=== PATIENT | male | born 1950 | race Caucasian/White ===

== ENCOUNTER 2021-07-25 20:03 | Emergency (ER) | payer MEDICARE, SELFPAY ==
[2021-07-25 20:04] VITALS: BP 157/85; PULSE 92; RESP 16; TEMP 37.2; O2SAT 95; BMI 29.3
--- NOTE | 2021-07-25 20:46 | EKG12_ITS ---
Test Reason : FEVER Blood Pressure : / mmHG Vent. Rate : 083 BPM Atrial Rate : 083 BPM P-R Int : 146 ms QRS Dur : 094 ms QT Int : 376 ms P-R-T Axes : 035 026 044 degrees QTc Int : 441 ms Normal sinus rhythm Normal ECG Confirmed by CHRISTOPHER RAMIREZ, VLADISLAV ([id number]), non linear editor ROSEANNA FISHER ([id number]) on 07/27/2021 11:43:43 AM Referred By: MARK Confirmed By:VLADISLAV WHITE MD
[2021-07-25 21:01] VITALS: BP 157/85; PULSE 92; RESP 16; TEMP 37.2; O2SAT 95
--- NOTE | 2021-07-25 21:10 | RAD_ITS ---
STUDY: X-RAY CHEST REASON FOR EXAM: Male, 71 years old. cough TECHNIQUE: AP COMPARISON: None. FINDINGS: EKG leads project over the chest. Ill-defined groundglass and reticular opacities of the bilateral lung bases. There is no demonstrated pleural abnormality. Normal size heart. Normal mediastinum and komal. Normal visualized pulmonary arteries. There is atherosclerotic tortuosity of the aortic arch and descending thoracic aorta. Normal visualized thoracic spine. Normal visualized ribs, clavicles, and shoulders. There is no demonstrated abnormality of the visualized soft tissue structures of the upper abdomen. RAD/Chest 1 View (Portable) IMPRESSION: Bibasilar ill-defined opacities suggesting pneumonia, including viral causes. Electronically Signed: Arcadio Morales MD ([place]) at 21:21 EST , Service support ,
[2021-07-25 21:18] LABS: Absolute Lymphocyte Count 0.37 X10^3/uL (0.83-4.51); Absolute Neutrophil Count 7.4 X10^3/uL (2.0-7.7); Basophil# 0.02 X10^3/uL; Basophil% 0.2 % (0-1); Eosinophil# 0.02 X10^3/uL; Eosinophils% 0.2 % (0-5); Hematocrit 37.5 % (40-54); Hemoglobin 12.5 g/dL (13.0-16.5); Lymphocyte # 0.37 X10^3/ul (0.83-4.51); Lymphocyte % 4.1 % (19-41); Mean Corp Hgb Conc 33.3 g/dL (32-36); Mean Corpuscular Hgb 29.9 pg (27.0-32.0); Mean Corpuscular Volume 89.7 fL (80-94); Mean Platelet Vol. 8.7 fl (6.2-12.0); Monocyte# 1.14 X10^3/uL; Monocyte% 12.7 % (0-10); NRBC Flagged by Analyzer 0 % (0-5); Neutrophil # 7.38 X10^3/uL (2.7-7.7); Neutrophil % 82.2 % (47-70); POSITIVE DIFFERENTIAL YES; Platelet Count 250 K/mm3 (150-450); RBC Distribution Width CV 12.9 % (11.6-14.6); RBC Distribution Width SD 41.9 fl (35.1-43.9); Red Blood Count 4.18 M/mm3 (4.6-6.2)
[2021-07-25 21:23] LABS: Differential Indicated SCAN CRITERIA MET
--- NOTE | 2021-07-25 21:25 | EX.ED.DYSGE1 ---
HPI History of Present Illness Chief Complaint: Fever Narrative Narrative: 71-year-old male presenting with fever. He states is been as high as 103. He took Tylenol and his fever had resolved. He complains of cough and sore throat. He states the only medication he takes every day is carbamazepine for seizure disorder. He had all 3 vaccines and had his last vaccine done in June. He denies chest pain. He does have mild shortness of breath. No dysuria, hematuria. No diarrhea or constipation. He has been generally weak today. He has not fallen. PFSH PFS Home Medications carbamazepine 200 mg PO TIDCM 06/14/15 [History Last Taken Unknown] carbamazepine 200 mg PO TID #30 tab 03/21/17 [Rx Last Taken Unknown] Allergy/AdvReac Type Severity Reaction Status Date / Time No Known Allergies Allergy Verified 07/25/21 20:05 Social History Smoking Status: Never smoker ROS ROS ED Constitutional Constitutional ED: Reports chills and fever(s) Eyes Eyes: Denies blurry vision or change in vision ENT ENT ED: Reports sore throat; Denies rhinorrhea Cardiovascular Cardiovascular: Denies chest pain or palpitations Respiratory/Chest Respiratory/Chest: Reports cough, dyspnea and dyspnea on exertion Gastrointestinal Gastrointestinal: Denies abdominal pain, nausea or vomiting Genitourinary Genitourinary ED: Denies dysuria or hematuria Musculoskeletal Musculoskeletal: Denies arthralgias or myalgias Integumentary Denies abscess or rash EXAM Physical Exam Const Vital Signs: 07/25/21 20:04 07/25/21 21:01 07/25/21 22:21 Temperature 99 F 99 F Temperature Source Oral Oral Pulse Rate 92 92 Respiratory Rate 16 16 Respiratory Effort Normal Non-Labored Respiratory Pattern Normal Blood Pressure 157/85 H 157/85 H Blood Pressure Mean 109 109 Pulse Ox 95 95 Oxygen Delivery Method Room Air Room Air 07/25/21 22:24 Temperature Temperature Source Pulse Rate 96 Respiratory Rate 16 Respiratory Effort Respiratory Pattern Blood Pressure 165/68 H Blood Pressure Mean 100 Pulse Ox 96 Oxygen Delivery Method Room Air Positive well nourished General Appearance ED: NAD; Negative for pallor HEENT Reports moist mucous membranes Negative for trauma Eyes PERRL and EOMs intact bilaterally Neck no lymphadenopathy and supple Cardio regular rate and regular rhythm GI normal to inspection, nondistended, normoactive bowel sounds Neuro oriented x3, CN's II-XII intact bilaterally and no sensory deficits noted Sensorium / Orientation: alert Psych mental status grossly normal Skin no rashes or lesions noted General Skin Exam: Negative for jaundice or pallor MDM MDM MDM Narrative Medical decision making narrative: Patient presenting with a cough, sore throat, and generalized weakness. He states he has had 3 Covid vaccines so far. He has no known sick contacts. He has also had a fever of 103. Patient has not had a fever here in the ER because he took Tylenol prior to coming. His vital signs are stable he is afebrile. I did obtain blood work and imaging as well as an EKG. His EKG shows a sinus rhythm with a ventricular rate of 83 bpm without sign of ischemic change. Chest x-ray on my interpretation shows bibasilar infiltrates. The radiologist does agree. CBC shows no leukocytosis and the patient is lymphopenic. D-dimer is 0.73 and therefore patient does not need a CTA with an age-adjusted D-dimer. Creatinine is normal. Procalcitonin negative. Urinalysis negative. Patient's rapid Covid was negative. I will obtain a PCR. If the patient is positive he will be referred for monoclonal antibodies. Since he is not requiring oxygen I do not believe he needs admission. Patient was signed out to incoming ED physician for follow-up on Covid and referral for monoclonal antibodies as needed. Impression: 1. Viral syndrome Lab Data Labs: Laboratory Results - last 24 hr 07/25/21 07/25/21 07/25/21 20:20 20:20 20:20 WBC 9.0 RBC 4.18 L Hgb 12.5 L Hct 37.5 L MCV 89.7 MCH 29.9 MCHC 33.3 RDW Std Deviation 41.9 RDW Coeff of Michaela 12.9 Plt Count 250 MPV 8.7 Immature Gran % (Auto) 0.600 Neut % (Auto) 82.2 H Lymph % (Auto) 4.1 L [place] % (Auto) 12.7 H Eos % (Auto) 0.2 Baso % (Auto) 0.2 Absolute Neuts (auto) 7.4 Absolute Lymphs (auto) 0.37 L Nucleated RBC % 0 Differential Comment Platelet Estimate ADEQUATE RBC Morphology NORM C+C D-Dimer Quant (PE/DVT) 0.73 H* Sodium 134 L Potassium 4.5 Chloride 99 Carbon Dioxide 27.0 Anion Gap 8 BUN 18 Creatinine 1.06 Estim Creat Clear Calc 60.05 Est GFR (MDRD) Af Amer 88 Est GFR (MDRD) Non-Af 73 BUN/Creatinine Ratio 17.0 Glucose 132 H Calcium 9.1 Total Bilirubin 0.20 AST 29 ALT 35 Alkaline Phosphatase 98 Troponin I High Sens 7 Total Protein 8.5 H Albumin 3.4 Globulin 5.1 H Albumin/Globulin Ratio 0.7 L Procalcitonin Urine Color Urine Clarity Urine pH Ur Specific [place] Urine Protein Urine Glucose (UA) Urine Ketones Urine Occult Blood Urine Nitrite Urine Bilirubin Urine Urobilinogen Ur Leukocyte Esterase Urine RBC Urine WBC Ur Squamous Epith Cells Urine Bacteria Urine Mucus 07/25/21 07/25/21 20:58 21:40 WBC RBC Hgb Hct MCV MCH MCHC RDW Std Deviation RDW Coeff of Michaela Plt Count MPV Immature Gran % (Auto) Neut % (Auto) Lymph % (Auto) [place] % (Auto) Eos % (Auto) Baso % (Auto) Absolute Neuts (auto) Absolute Lymphs (auto) Nucleated RBC % Differential Comment Platelet Estimate RBC Morphology D-Dimer Quant (PE/DVT) Sodium Potassium Chloride Carbon Dioxide Anion Gap BUN Creatinine Estim Creat Clear Calc Est GFR (MDRD) Af Amer Est GFR (MDRD) Non-Af BUN/Creatinine Ratio Glucose Calcium Total Bilirubin AST ALT Alkaline Phosphatase Troponin I High Sens Total Protein Albumin Globulin Albumin/Globulin Ratio Procalcitonin 0.04 Urine Color Yellow Urine Clarity Clear Urine pH 6.0 Ur Specific [place] 1.030 Urine Protein 15 H Urine Glucose (UA) Normal Urine Ketones Negative Urine Occult Blood 25 H Urine Nitrite Negative Urine Bilirubin Negative Urine Urobilinogen Normal Ur Leukocyte Esterase Negative Urine RBC 0-5 SEEN Urine WBC 0 SEEN Ur Squamous Epith Cells 0 SEEN Urine Bacteria 0 SEEN Urine Mucus 0 SEEN Radiography Diagnostic Testing: Clinical Impression(s) from Imaging Studies Chest X-Ray 07/25/21 21:10 IMPRESSION: Bibasilar ill-defined opacities suggesting pneumonia, including viral causes. Electronically Signed: Arcadio Morales MD ([place]) at 21:21 EST , Service support , Discharge Plan Triage Chief Complaint: Fever ED Provider: Daryl Pedraza Dx/Rx/DC Orders Prescriptions: No Action carbamazepine 200 MG tablet 200 mg PO TIDCM RF: 0 carbamazepine 200 MG tablet 200 mg PO TID Qty: 30 RF: 0 Primary Care Provider: Bebeto Holcomb
[2021-07-25 21:29] LABS: ALB/GLOB Ratio 0.7 RATIO (0.9-2.4); AST(SGOT) 29 U/L (15-37); Alanine Aminotransfer ALT/SGPT 35 U/L (16-61); Albumin, Serum 3.4 g/dL (3.2-5.0); Alkaline Phosphatase 98 U/L (45-117); Anion Gap 8 (5-15); BUN 18 mg/dL (7-18); Calcium,Total 9.1 mg/dL (8.5-10.1); Chloride 99 mmol/L (98-107); Creatinine, Serum 1.06 mg/dL (0.70-1.30); D-Dimer Quantitative (DVT/PE) 0.73 FEU/ug/m (0.27-0.49); EST Glomerular Filtration Rate 73 mL/min (>60); Est Glom Filt Rate - Afr Amer 88 mL/min (>60); Estimated Creatinine Clearance 60.05 ml/min; Globulin 5.1 g/dL (2.2-4.2); Glucose 132 mg/dL (74-106); Potassium 4.5 mmol/L (3.5-5.1); Protein, Total 8.5 g/dL (6.4-8.2); Sodium Level 134 mmol/L (136-145); Troponin-I HS 7 pg/mL (3.0-78.0)
[2021-07-25 21:46] LABS: Bacteria 0 SEEN /hpf (None Seen); Mucous, Urine 0 SEEN /hpf (<or=2+); Squamous Epithelial Cells - UA 0 SEEN /hpf (0-5); White Blood Cells 0 SEEN /hpf (0-5)
[2021-07-25 21:47] LABS: Procalcitonin 0.04 ng/mL (0.00-0.09)
[2021-07-25 21:57] LABS: Color, Urine Yellow (Yellow); Glucose, Dipstick Normal (Normal); Ketone-Dipstick Negative (Negative); Leukocyte Esterase-Dipstick Negative /ul (Negative); Nitrite-Dipstick Negative (Negative); Occult Blood-Urine 25 /ul (Negative); Protein-Dipstick 15 mg/dl (Negative); Urine Bilirubin Dipstick Negative (Negative); Urine Clarity Clear (Clear); Urine Urobilinogen Normal (Normal)
[2021-07-25 22:03] LABS: Platelet Estimate ADEQUATE (ADEQ); Red Cell Morphology NORM C+C NORMAL (NORM C&C)
[2021-07-25 22:07] LABS: Red Blood Cells-Urine 0-5 SEEN /hpf (0-5)
[2021-07-25 22:24] VITALS: BP 165/68; PULSE 96; RESP 16; O2SAT 96
[2021-07-25 23:50] VITALS: O2SAT 96
== END 2021-07-26 00:05 | disposition home or self-care (01) ==
PROVIDERS: Emergency Provider Student in an Organized Health Care Education/Training Program; PCP Family Medicine
DX: R50.9 Fever, unspecified (principal); B34.9 Viral infection, unspecified; R05.9 Cough, unspecified; J02.9 Acute pharyngitis, unspecified; R53.1 Weakness; R06.02 Shortness of breath; G40.909 Epilepsy, unspecified, not intractable, without status epilepticus
CPT/HCPCS: 71045; 80053; 81001; 84145; 84484; 85025; 85379; 87426; 87635; 93005; 99284; U0005; A4216; U0003

== ENCOUNTER → 2021-07-30 18:25 | Outpatient (CLI) | payer MEDICARE, SELFPAY | PROVIDERS: PCP Family Medicine; Referring Provider Family Medicine; Visit Provider Family Medicine | DX: Z20.822 Contact with and (suspected) exposure to COVID-19 (principal) | CPT/HCPCS: 87635; U0005; U0003 ==

== ENCOUNTER → 2021-08-20 10:36 | Outpatient (CLI) | payer MEDICARE, SELFPAY | PROVIDERS: PCP Family Medicine; Visit Provider Family Medicine | DX: L02.91 Cutaneous abscess, unspecified (principal) | CPT/HCPCS: 87070; 87205 ==

== ENCOUNTER → 2022-11-08 | Outpatient (CLI) | payer MEDICARE, SELFPAY ==
[2022-11-08 17:54] LABS: Absolute Lymphocyte Count 1.44 X10^3/uL (0.83-4.51); Absolute Neutrophil Count 4.5 X10^3/uL (2.0-7.7); Basophil# 0.02 X10^3/uL; Basophil% 0.3 % (0-1); Eosinophil# 0.05 X10^3/uL; Eosinophils% 0.7 % (0-5); Hematocrit 37.6 % (40-54); Hemoglobin 12.1 g/dL (13.0-16.5); Lymphocyte # 1.44 X10^3/ul (0.83-4.51); Mean Corp Hgb Conc 32.2 g/dL (32-36); Mean Corpuscular Hgb 30.9 pg (27.0-32.0); Mean Corpuscular Volume 95.9 fL (80-94); Mean Platelet Vol. 8.4 fl (6.2-12.0); Monocyte# 0.79 X10^3/uL; Monocyte% 11.5 % (0-10); NRBC Flagged by Analyzer 0 % (0-5); Neutrophil # 4.54 X10^3/uL (2.7-7.7); Neutrophil % 66.4 % (47-70); Platelet Count 289 K/mm3 (150-450); RBC Distribution Width CV 12.6 % (11.6-14.6); RBC Distribution Width SD 43.7 fl (35.1-43.9); Red Blood Count 3.92 M/mm3 (4.6-6.2); White Blood Count 6.9 K/mm3 (4.4-11.0)
== END | disposition home or self-care (01) ==
LOC: MTLAB 16:32
PROVIDERS: PCP Family Medicine; Referring Provider Family Medicine; Visit Provider Family Medicine
DX: D64.9 Anemia, unspecified (principal)
CPT/HCPCS: 36415; 85025

== ENCOUNTER 2023-02-27 21:13 | Emergency (ER) | payer MEDICARE, SELFPAY ==
[2023-02-27 21:14] VITALS: BP 185/83; PULSE 72; RESP 16; TEMP 36.4; O2SAT 95; BMI 28.5
--- NOTE | 2023-02-27 21:45 | RAD_ITS ---
STUDY: X-RAY - LEFT SHOULDER REASON FOR EXAM: Male, 73 years old. . Continued left shoulder pain. TECHNIQUE: 2 view(s) of the shoulder. COMPARISON: None. FINDINGS: There is mild degenerative arthrosis of the glenohumeral articulation. There is degenerative arthrosis of the acromioclavicular joint without inferior osseous spur formation. Normal acromion. There is no acute fracture, dislocation or destructive osseous pathology. Normal humeral head and visualized proximal humerus. There are calcifications adjacent to the greater tubercle suggesting calcified bursitis. The soft tissue structures are unremarkable. Normal visualized pulmonary apex. RAD/Shoulder min 2 Views IMPRESSION: Degenerative changes left shoulder with question of calcified bursitis. There is no fracture or dislocation. Electronically Signed: Jorge Gallo DO at 21:58 EDT ,
--- NOTE | 2023-02-27 23:02 | EX.ED.UPPERE ---
HPI History of Present Illness HPI Narrative: Patient presents with left shoulder pain that has been getting worse over the past week. Patient states it is intermittent. Patient states it is worse with movement. Patient states it is better with Tylenol. Patient fell 1 month ago and landed on his left shoulder. Patient never had that evaluated. Patient denies any head injury or loss of consciousness with the fall. Patient denies any paresthesias or weakness. Patient denies any other injuries. Chief Complaint: Upper Extremity Injury Informant: patient Occured/Mechanism Mechanism/Context: Yes fall Onset/Context/Timing Onset: Weeks (1) Context: Gradual Onset Quality of Pain: Dull and Aching Location: Left shoulder Worsened by: Movement Relieved by: Tylenol Associated Symptoms Associated Symptoms: Negative for Parasthesia, Weakness or Loss of Funtion PFSH PFSH Medical History no medical history no medical history Home Medications carbamazepine 200 mg tablet 200 mg PO TIDCM 06/14/15 [History Last Taken Unknown] carbamazepine 200 mg tablet 200 mg PO TID #30 tabs 03/21/17 [Rx Last Taken Unknown] meloxicam 15 mg tablet 15 mg PO DAILY PRN pain #10 tabs 02/27/23 [Rx Last Taken Unknown] Allergy/AdvReac Type Severity Reaction Status Date / Time No Known Allergies Allergy Verified 02/27/23 21:16 Surgical History no surgical history no surgical history Social History Smoking Status: Never smoker ROS ROS ED Constitutional Constitutional ED: Denies chills or fever(s) Eyes Eyes: Denies blurry vision or change in vision ENT ENT ED: Denies rhinorrhea or sore throat Cardiovascular Cardiovascular: Denies chest pain or palpitations Respiratory/Chest Respiratory/Chest: Denies cough or dyspnea Gastrointestinal Gastrointestinal: Denies nausea or vomiting Genitourinary Genitourinary ED: Denies dysuria or hematuria Musculoskeletal Musculoskeletal: Denies back pain or neck pain Integumentary Denies abscess or rash Neurologic Neurologic: Denies headache(s) or weakness Allergic/Immunologic Allergic/Immunologic ED: Denies mouth swelling or urticaria EXAM Physical Exam Const Vital Signs: 02/27/23 21:14 Temperature 97.6 F L Temperature Source Temporal Pulse Rate 72 Respiratory Rate 16 Blood Pressure 185/83 H Blood Pressure Mean 117 Pulse Ox 95 Oxygen Delivery Method Room Air Positive well nourished and well developed General Appearance ED: well developed and NAD HEENT Reports moist mucous membranes Neck full ROM and supple Extremity Extremity Narrative: There is diffuse tenderness over the left shoulder. There is no obvious deformity noted. Range of motion was limited in all motions of the left shoulder secondary to pain. Strength is 5/5 bilateral in the upper extremities. There are no sensory deficits noted. Radial pulses are equal bilaterally. Neuro oriented x3, CN's II-XII intact bilaterally, moves all extremities, no focal motor deficits and no sensory deficits noted Sensorium / Orientation: alert Motor Exam: strength 5/5 throughout Psych mental status grossly normal MDM MDM MDM Narrative Medical decision making narrative: Differential diagnosis includes occult fracture, arthritis, and soft tissue injury. X-rays of the left shoulder will be obtained to assess for fracture and degenerative arthritis. Radiography Diagnostic Testing: Clinical Impression(s) from Imaging Studies Shoulder X-Ray 02/27/23 21:45 IMPRESSION: Degenerative changes left shoulder with question of calcified bursitis. There is no fracture or dislocation. Electronically Signed: Jorge Gallo DO at 21:58 EDT Reading Location ID and State: [address] [place] [address] Tel [phone], Service support , X-rays of the left shoulder were obtained. There are 2 views. On my independent interpretation, there is no acute fracture or dislocation. There is questionable calcific bursitis noted. Radiologist also interpreted the x-rays and agrees. Treatment and Re-Evaluation Narrative: Patient was advised of his findings. Patient was instructed to use ice to the area. Patient was given a prescription for meloxicam to take as needed for pain. Patient was instructed to do range of motion exercises. Patient was instructed to follow-up with his primary care physician in 5 to 7 days. Patient understood and was agreeable with the plan. All questions were answered. Discharge Plan Triage Chief Complaint: Upper Extremity Injury ED Provider: Bairon White Dx/Rx/DC Orders Clinical Impression: Bursitis of left shoulder Instructions: ED Bursitis Prescriptions: New meloxicam 15 mg tablet 15 mg PO DAILY PRN (Reason: pain) Qty: 10 0RF No Action carbamazepine 200 MG tablet 200 mg PO TIDCM carbamazepine 200 MG tablet 200 mg PO TID Qty: 30 0RF Primary Care Provider: Bebeto Holcomb Referrals: Bebeto Holcomb MD [Primary Care Provider] - 5-7 Days Disposition Disposition: Home, Self Care
== END 2023-02-27 23:41 | disposition home or self-care (01) ==
PROVIDERS: Emergency Provider Emergency Medicine; PCP Family Medicine; Visit Provider Emergency Medicine
DX: M75.52 Bursitis of left shoulder (principal); W19.XXXA Unspecified fall, initial encounter
CPT/HCPCS: 73030; 99282

== ENCOUNTER 2023-03-20 14:51 | Outpatient (RCR) | payer MEDICARE, SELFPAY ==
--- NOTE | 2023-03-20 15:53 | HP.PTEVAL ---
Patient's Visit Information Visit Information Visit Information: GIOVANNA MONTOYA is a 73 year old M referred to Physical Therapy by Dr. Kevin Herrmann DO with a diagnosis of Left Shoulder. Date of Evaluation: 03/20/23 Physical Therapist: Chantal Breen DPT Visit Plan Plan: Gave indep HEP with tbands phase 3 RTC strengthening- able to complete Subjective Subjective: Patient reports that his left shoulder was bothering him and then Dr. Jorge put a steroid injection in it and its feeling back to normal. He is right hand dominate. He had the cortisone injection in on Friday the . He is here today and just wants to make sure he can work without having it go back to hurting. He is not currently exercise program. 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 PMHx/Meds: see list Objective Objective: Posture: good throughout tx session Gait: no deviation noted- good arm swing and trunk rotation Palpation: not tender to touch throughout ROM: WFL in all planes in the cervical spine and left shoulder/elbow/hand Strength: Scap: fair plus, Shoulder: 5/5, Elbow: 5/5 Orthopedic Specialist: equal Lifting: proper mechanics Balance/Special Test Scores Quick DASH Score: 0 Rehabilitation Potential Physical Therapy Diagnosis: Patient presents with good ROM, strength and no pain- does not require PT at this tinme. Rehabilitation Potential: Excellent Anticipated Interventions Text: Thank you for the opportunity to evaluate your patient. For Medicare and Medicare HMO plans, please review the plan of care and approve it. It will need to be FAXED BACK to us at [phone] for Medicare purposes. For Medicare only, by signing this I certify the plan of care. Please let me know if there are questions or concerns regarding this plan of care. Physician Signature: Date:
--- NOTE | 2023-05-01 09:39 | HP.PT.NRP ---
Patient Information Patient Information: GIOVANNA MONTOYA was seen in my office for initial evaluation on 03/20/23. The following Plan of Care was established for this patient: Last Seen Last Seen: This patient was last seen in our office . Pertinent comments regarding their Physical therapy will appear below: Patient cleared to go back to work and given HEP- appropriate for d/c At this point I will be discontinuing this patient from physical therapy. I would be happy to see this patient again in the future if found appropriate by the physician. Thank you! KIRAN OwensT Balance/Gait/Functional tests Balance/Special Test Scores Quick DASH Score: 0
== END 2023-03-20 19:00 | disposition home or self-care (01) ==
LOC: PT 14:51
PROVIDERS: PCP Family Medicine; Referring Provider Orthopaedic Surgery; Visit Provider Orthopaedic Surgery
DX: M75.32 Calcific tendinitis of left shoulder (principal)
CPT/HCPCS: 97162

== ENCOUNTER → 2023-11-05 | Outpatient (CLI) | payer MEDICARE, SELFPAY ==
--- NOTE | 2023-11-05 13:13 | RAD_ITS ---
INDICATION: Left rib EXAMINATION/TECHNIQUE: X-RAY - bilateral ribs, 6 views. BONES: Nondisplaced fracture of the lateral aspect of the left fifth rib. No other fractures are definitely identified. VISUALIZED LUNGS: No pneumothorax. RAD/Ribs Bilat 3V No CXR IMPRESSION: Fracture of the left fifth rib. Electronically Signed: Rg Ramesh MD at 15:26 EST ,
--- OUTSIDE RECORDS SUMMARY | 2023-11-05 17:12 | XMS RPT_ITS | CCD ---
Author Name Unknown Address [address] [place] [address] Organization [facility] Results Test Name Value Interpretation Reference Range Facil ity Summary Purpose Family History No Family History Records Found Advance Directives No Advanced Directives Records Found Additional Source Comments (unrecognized sect ion and content) No Status Records Found INFORMATION SOURCE (unrecogn ized section and content) FOR RECORDS PERTAINING TO PATIENTS WHO ARE OR HAVE BEEN ENROLLED IN A CHEMICAL DEPENDENCY/SUBSTANCEABUSE PROGRAM, SOME INFORMATION MAY BE OMITTED. This clinical summary was aggregated from multiple sources. Caution should be exercised in using it in the provision of clinical care. This summary normalizes information from multiple sources, and as a consequence, information in this document may materially change the coding, format and clinical context of patient data. In addition, data may be omitted in some cases. CLINICAL DECISIONS SHOULD BE BASED ON THE PRIMARY CLINICAL RECORDS. [facility]. provides no warranty or guarantee of the accuracy or completeness of information in this document.
== END | disposition home or self-care (01) ==
LOC: MTLAB 13:11 → MTRAD 13:12
PROVIDERS: PCP Family Medicine; Referring Provider Family Medicine; Visit Provider Family Medicine
DX: S29.9XXA Unspecified injury of thorax, initial encounter (principal)
CPT/HCPCS: 71110

== ENCOUNTER 2024-10-13 06:59 | Emergency (ER) | payer OTHER, SELFPAY ==
[2024-10-13] VITALS (7 sets, daily range): BP systolic 122–161; BP diastolic 70–94; PULSE 62–99; RESP 16–18; TEMP 36.4–36.7; O2SAT 95–98; BMI 29.7
--- NOTE | 2024-10-13 07:07 | ED.VIS.LOWEX ---
HPI History of Present Illness HPI Narrative: Patient presents with right hip pain that began after a fall today. Patient states he slipped and fell. Patient states he landed on his right hip. Patient denies any head injury or loss of consciousness. Patient describes the pain as aching. Patient states it is worse with weightbearing. Patient denies any paresthesias or weakness. Patient denies any other injuries. Patient states he was unable to ambulate after the fall. Chief Complaint: Fall Informant: patient Occured/Mechanism Mechanism/Context: Yes fall Onset/Context/Timing Onset: Today Context: Sudden Onset Quality of Pain: Aching Location: Right hip Worsened by: Weightbearing Relieved by: Nothing Associated Symptoms Associated Symptoms: Negative for Parasthesia, Weakness or Loss of Funtion PFSH PFS Medical History (Updated 10/13/24 @ 10:[address] Bairon White DO) Epilepsy Medical History no medical history Home Medications ?Medication ?Instructions ?Recorded ?Last Taken ?Type carbamazepine 200 mg tablet 200 mg PO TID #30 tabs 03/21/17 10/13/24 Rx calcium 500 mg-vitamin D3 100 1 tab PO DAILY 03/17/23 10/12/24 History unit-vitamin K 40 mcg chewable tablet multivitamin 1 tab PO DAILY 03/17/23 10/12/24 History olanzapine 2.5 mg tablet 2 mg PO DAILY 10/13/24 Unknown History Allergy/AdvReac Type Severity Reaction Status Date / Time No Known Allergies Allergy Verified 10/13/24 07:00 Family History no significant family his Surgical History no surgical history no surgical history Social History Smoking Status: Never smoker alcohol intake: never ROS ROS ED Constitutional Constitutional ED: Denies chills or fever(s) Eyes Eyes: Denies blurry vision or change in vision ENT ENT ED: Denies rhinorrhea or sore throat Cardiovascular Cardiovascular: Denies chest pain or palpitations Respiratory/Chest Respiratory/Chest: Denies cough or dyspnea Gastrointestinal Gastrointestinal: Denies nausea or vomiting Genitourinary Genitourinary ED: Denies dysuria or hematuria Musculoskeletal Musculoskeletal: Denies back pain or neck pain Integumentary Denies abscess or rash Neurologic Neurologic: Denies headache(s) or weakness Allergic/Immunologic Allergic/Immunologic ED: Denies mouth swelling or urticaria EXAM Physical Exam Const Vital Signs: 10/13/24 07:00 10/13/24 07:04 10/13/24 09:29 Temperature 97.6 F L 97.6 F L Temperature Source Oral Pulse Rate 62 81 Respiratory Rate 16 16 Respiratory Effort Normal Non-Labored Respiratory Depth Normal Respiratory Pattern Normal Blood Pressure 161/70 H 127/80 H Blood Pressure Mean 100 95 Pulse Ox 95 97 Oxygen Delivery Method Room Air Room Air Room Air 10/13/24 11:00 10/13/24 13:00 Temperature Temperature Source Pulse Rate 80 Respiratory Rate 16 Respiratory Effort Respiratory Depth Respiratory Pattern Blood Pressure 122/84 H 141/70 H Blood Pressure Mean 96 93 Pulse Ox 97 Oxygen Delivery Method Positive well nourished and well developed General Appearance ED: well developed and NAD HEENT Reports moist mucous membranes normocephalic and atraumatic Neck full ROM and supple Resp normal respiratory effort and clear to auscultation bilaterally Cardio regular rate and regular rhythm GI non-tender and non-distended Palpation: soft Extremity Extremity Narrative: There is tenderness over the lateral and anterior aspects of the right hip. There is no deformity noted. Range of motion was limited in flexion, internal rotation, and external rotation secondary to pain. Posterior tibial pulses are equal bilaterally. Sensation is intact to light touch bilaterally in the lower extremities. Strength is 5/5 bilateral in the lower extremities. Neuro oriented x3, CN's II-XII intact bilaterally, moves all extremities and no sensory deficits noted Sensorium / Orientation: alert Motor Exam: strength 5/5 throughout Psych mental status grossly normal MDM MDM MDM Narrative Medical decision making narrative: Differential diagnosis includes fracture, contusion, and muscle strain. X-rays of the right hip and pelvis will be obtained to assess for fracture. Radiography Diagnostic Testing: Clinical Impression(s) from Imaging Studies Hip/Pelvis X-Ray 10/13/24 08:00 IMPRESSION: Prominent degenerative changes are seen of the visualized lower lumbar spine. At least partial fusion of bilateral sacroiliac joints is seen. Limited imaging of the left hip shows only minimal degenerative changes, without apparent joint narrowing. The right acetabulum is deformed at the central and medial aspects, also with more superior placement within the pelvis compared with the left. No significant joint narrowing is appreciated, however. No evidence of femoral head osteonecrosis. No acute fracture or dislocation is seen. Reading Location: [id number] Lower Extremity CT 10/13/24 09:42 IMPRESSION: Comminuted fracture of the inferior aspect of the right iliac bone with extension into the right acetabulum and anterior displacement of the distal fracture fragments. This involves the posterior acetabulum more prominently than the anterior aspect. Diffuse soft tissue swelling. One or more dose reduction techniques were used (e.g., Automated exposure control, adjustment of the mA and/or kV according to patient size, use of iterative reconstruction technique). [facility] of the right hip were obtained. There are 3 views. On my independent interpretation, there is no acute fracture. There is some displacement of the central medial aspect of the right acetabulum. Radiologist also interpreted the x-rays and agrees. CT scan of the right hip and pelvis was obtained. There is a comminuted fracture of the inferior aspect of the right iliac bone with extension into the right acetabulum and anterior displacement of the distal fracture fragments. This was interpreted by the radiologist and was also independently reviewed by myself. Treatment and Re-Evaluation Narrative: Patient was given injection of morphine here. Patient attempted ambulated in the emergency department. Patient was unable to ambulate in the emergency department. Because of this, patient was given a repeat dose of morphine. CT scan of the right hip was obtained to assess for fracture. Patient was advised of his findings. Case was discussed with Dr. Burden from orthopedics. He recommended transferring the patient to a tertiary care facility as this may need to be repaired surgically. Case was discussed with Dr. Limon at [facility]. He accepted the patient to be transferred. He recommended transferring the patient to the emergency department. Case was discussed with the emergency physician at [facility]. She is agreeable to have the patient transferred to the emergency department there. Patient understood and was agreeable with the plan. All questions were answered. Discharge Plan Triage Chief Complaint: Fall ED Provider: Bairon White Dx/Rx/DC Orders Clinical Impression: Closed fracture of right acetabulum, Fracture of ramus of right pubis, Fall Prescriptions: No Action calcium-vitamin D3-vitamin K 500-100-40 mg-unit-mcg tablet,chewable 1 tab PO DAILY multivitamin Tablet 1 tab PO DAILY carbamazepine 200 MG tablet 200 mg PO TID Qty: 30 0RF olanzapine 2.5 mg tablet 2 mg PO DAILY Stand Alone Forms: [facility] Referral Primary Care Provider: Bebeto Holcomb Referrals: Bebeto Holcomb MD [Primary Care Provider] - Print Language: British Disposition Disposition: Acute Care Hospital Discharge Location: [facility]
[2024-10-13] MEDS: Morphine 2 MG/ML Syringe IV ×2 (07:45→09:52)
--- NOTE | 2024-10-13 08:00 | RAD_ITS ---
PROCEDURE: HIP, UNI W/ PELVIS 2-3 VIEWS REASON FOR EXAM: Injury, pain. TECHNIQUE: Three-view right hip to include the AP pelvis COMPARISON: None. RAD/HIP, UNI W/ Pelvis 2-3 Views IMPRESSION: Prominent degenerative changes are seen of the visualized lower lumbar spine. At least partial fusion of bilateral sacroiliac joints is seen. Limited imaging of the left hip shows only minimal degenerative changes, withou t apparent joint narrowing. The right acetabulum is deformed at the central and medial aspects, also with m ore superior placement within the pelvis compared with the left. No significant joint narrowing is appreciated, however. No evidence of femoral head osteonecrosis. No acute fracture or dislocation is seen. Reading Location: [id number]
--- NOTE | 2024-10-13 09:42 | CT_ITS ---
PROCEDURE: EXTREMITY LOWER WITHOUT CONTRA REASON FOR EXAM: Right hip pain following a recent fall. TECHNIQUE: CT scan of the pelvis and right hip without intravenous contrast. Axial and coronal reconstruction was obtained as well. COMPARISON: Comparison is made with prior radiographs the earlier in the day. FINDINGS: Bones: There is evidence of a comminuted fracture of the right iliac wing extending into the right acetabulum. There is anterior displacement of the distal fracture fragment. Joints: Moderate degree of joint space narrowing of the hip joint. Soft Tissues: Soft tissue swelling. CT/Extremity Lower without Contra IMPRESSION: Comminuted fracture of the inferior aspect of the right iliac bone with extensi on into the right acetabulum and anterior displacement of the distal fracture fragments. This involves the posterior tiki tabulum more prominently than the anterior aspect. Diffuse soft tissue swelling. One or more dose reduction techniques were used (e.g., Automated exposure contr ol, adjustment of the mA and/or kV according to patient size, use of iterative reconstruction technique). Reading Location: [place] [id number]
--- NOTE | 2024-10-13 09:46 | ED.RN ---
patient refusing to ambulate. States I broke my leg or hip. RN notified.
--- NOTE | 2024-10-13 10:24 | ED.RN ---
CALLED FOR A UPDATE AND EXPLAINED SHE IS NOT HERE BECAUSE OF HER MOBILITY. PT ALSO AWARE SHE CALLED AND FOR US TO GIVE HER UPDATES WELL
--- NOTE | 2024-10-13 13:48 | ED.RN ---
CALLED [facility] ([facility] ) AT 1347 TRAUMA TRANSFER
[2024-10-13] MEDS: Morphine 4 MG/ML Syringe IV ×2 (14:15→15:21)
--- NOTE | 2024-10-13 14:16 | ED.RN ---
per dr weber. pt allowed to take his home tegretol 200 mg capsule. pt took without difficulty
== END 2024-10-13 15:34 | disposition short-term general hospital (02) ==
PROVIDERS: Emergency Provider Emergency Medicine; PCP Family Medicine; Visit Provider Emergency Medicine
DX: S32.501A Unspecified fracture of right pubis, initial encounter for closed fracture (principal); S32.401A Unspecified fracture of right acetabulum, initial encounter for closed fracture; W01.0XXA Fall on same level from slipping, tripping and stumbling without subsequent striking against object, initial encounter
CPT/HCPCS: 73502; 73700; 96374; 96376; 99285; A4216

== ENCOUNTER 2024-10-19 14:22 | Inpatient (IN) | payer OTHER, MEDICARE, SELFPAY ==
[2024-10-19 14:35] VITALS: BP 118/62; PULSE 89; RESP 16; TEMP 36.6; O2SAT 93; BMI 29.2
--- NOTE | 2024-10-19 14:40 | PCM.HP.STD ---
HPI - General General Date of Admission: 10/19/24 Date of Service: 10/19/24 Chief Complaint: Debility due to hip fracture HPI Narrative GIOVANNA MONTOYA, is a 74 YO M with a PMH of paranoid schizophrenia, hyperglycemia (not diagnosed with DM), seizure disorder (no seizure for 30 years) and psoriasis who presented to the ED at [facility] on 10/13/2024 after having a fall at work. He works at the [employer]. He was complaining of right hip pain that was worse with weightbearing. He was not able to ambulate. Plain x-rays showed the right acetabulum to be deformed at the central and medial aspects. CT scan of the pelvis and right hip showed a comminuted fracture of the inferior aspect of the right iliac bone with extension into the right acetabulum and anterior displacement of the distal fracture fragments. It involve the posterior acetabulum more prominently than the anterior. The ER doctor discussed the case with Dr. Burden from orthopedics and he recommended transfer to a tertiary care facility. The case was discussed with Dr. Limon at [facility] and he accepted the patient for transfer. He underwent surgery on 10/14/2024. Postoperatively his hemoglobin dropped to 6.7 and he received a blood transfusion. The hemoglobin has been stable for the past 2 days. He was transferred to the acute inpatient rehab unit at [facility] on 10/19/2024 for 3 hours of therapy daily to restore function/independence at or near his level prior to the recent fall/fracture. Dr. Holcomb is his PCP in [place] and [facility] Can not tell me what he uses for psoriasis. Hx is difficult to obtain. He told me his grandson was 15 and then he told me he was 18 and in college. Tells me that his son lives in [place] and is in business administration. His 's name is Cielo. 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 Tells me that he is sleeping OK at night. His pain is pretty well controlled. He is fearful of walking........wanted to use a bedpan rather than to get up to the bed side commode or the toilet. he is toe touch wt bearing on the RLE. He is pleasant and cooperative. [facility] Medical History (Updated 02/18/25 @ 16:[address] Marlyn Gutierrez DO) Hyperglycemia Psoriasis Paranoid schizophrenia Epilepsy Home Medications ?Medication ?Instructions ?Recorded ?Last Taken ?Type carbamazepine 200 mg tablet 200 mg PO TID Seizures #30 tabs 03/21/17 10/19/24 Rx calcium 500 mg-vitamin D3 100 1 tab PO DAILY supplement 03/17/23 10/12/24 History unit-vitamin K 40 mcg chewable tablet Held on 10/19/24. Instructions: MD Ordered multivitamin 1 tab PO DAILY supplement 03/17/23 10/12/24 History Held on 10/19/24. Instructions: MD Ordered olanzapine 2.5 mg tablet 2.5 mg PO DAILY Schizophrenia 10/13/24 10/18/24 History acetaminophen 325 mg tablet 650 mg PO Q4H PRN pain 10/19/24 Unknown History (Tylenol) oxycodone 5 mg capsule 5 mg PO Q4H PRN pain (scale score 10/19/24 10/18/24 History 4-10) Allergy/AdvReac Type Severity Reaction Status Date / Time No Known Allergies Allergy Verified 10/13/24 07:00 Family History unable to obtain unable to obtain Social History (Updated 10/19/24 @ 15:[address] Marlyn Gutierrez DO) household members: significant other and other details: His 's name is Cielo. housing: house current occupational status: employed current occupation: Housekeeping at [employer] Smoking Status: Never smoker alcohol intake: never substance use type: does not use ROS Review of Systems ROS Unobtainable: other Details: somewhat of a poor historian Constitutional Constitutional: Denies chills, difficulty sleeping, fever(s), frequent falls or headache(s) Eyes Eyes: Denies blurry vision, change in vision, eye pain or loss of vision ENT HEENT: Denies abnormal hearing, dysphagia, headache(s), hearing loss, nasal congestion or sore throat Cardiovascular Cardiovascular: Denies chest pain, dyspnea on exertion, edema, lightheadedness, orthopnea, palpitations, paroxysmal nocturnal dyspnea or syncope Respiratory/Chest Respiratory/Chest: Denies cough, dyspnea, shortness of breath at rest, shortness of breath with exertion or wheezing Gastrointestinal Gastrointestinal: Reports constipation; Denies abdominal pain, diarrhea, dyspepsia, hematemesis, hematochezia, nausea or vomiting Genitourinary Genitourinary: Denies dysuria, hematuria, nocturia, urinary frequency, urinary hesitancy, urinary incontinence or urinary urgency Musculoskeletal Musculoskeletal: Reports extremity pain and joint pain; Denies back pain, joint swelling, neck pain, numbness, tingling or tremors Integumentary Integumentary: Reports dry skin and other Details: He has psoriasis around the umbilicus, on the R side of the nose and in the nasolabial fold, on the abd and on the R lateral calf Neurologic Neurologic: Reports focal weakness; Denies confusion, disequilibrium, dizziness, frequent falls, headache(s), paresthesias, seizure-like activity, seizures, syncope, tremor(s) or vertigo Psychiatric Psychiatric: Reports cognitive impairment; Denies anxiety, depression, homicidal ideation or suicidal ideation Endocrine Endocrinology: Denies change in body appearance, polydipsia or polyuria Hematologic/Lymphatic Hematologic/Lymphatic: Denies easy bleeding, easy bruising or lymphadenopathy Allergic/Immunologic Allergic/Immunologic: Reports other Details: psoriasis. ; Denies rhinitis, eczemia or asthma Vital Signs Vital Signs Vital Signs: 10/19/24 14:35 Temperature 97.8 F Temperature Source Oral Pulse Rate 89 Respiratory Rate 16 Blood Pressure 118/62 Blood Pressure Mean 80 Blood Pressure Source Monitor Blood Pressure Position Supine Blood Pressure Location Left Arm Pulse Ox 93 Oxygen Delivery Method Room Air Physical Exam Const alert, no apparent distress, healthy appearing and well nourished Constitutional Narrative: appears comfortable. Pleasant and outgoing. Makes good eye contact with me. General Appearance: cooperative HEENT normocephalic, head/scalp atraumatic, hearing grossly normal bilaterally and moist oral mucous membranes HEENT Narrative: No evidence of thrush Eyes PERRL, EOMs intact bilaterally, conjunctivae normal and no scleral icterus Eyes Narrative: No discharge from the eyes and no mattering of the eyelashes. General Eye: normal appearance of both eyes Neck supple and No nodes Neck Narrative: Carotids have brisk upstroke and good pulse volume early. General: trachea midline Resp normal respiratory effort, normal air movement and clear to auscultation bilaterally Effort and Inspection: able to speak in complete sentences and symmetric chest movement Cardio regular rate, regular rhythm, S1 normal heart sound, S2 normal heart sound, no murmurs and no rub Cardio Narrative: No ectopy Peripheral Pulses: pulses 2+ throughout GI normal to inspection, nondistended, normoactive bowel sounds, soft to palpation and non-tender GI Narrative: No guarding with palpation Narrative: Scrotum is very ecchymotic, mild swelling. Swollen foreskin. Not circumcised. some intertrigo in the groin. Bladder / Kidney Exam: No catheter in place Extremity no calf tenderness Extremity Narrative: trace ankle edema on the R. No edema on the left. Skin Skin Narrative: No decubitus ulcers. The R hip has a few blisters/small bullae........they are linear and look like tape reactions. There is some serous drainage from the blisters. The rosalee in the R lateral hip are intact with no erythema and no dehiscense. The large incisions over the pelvis are intact with no dehiscence, no carissa-incisional erythema and no purulent discharge. No purulent discharge from any of the wounds/incisions. He appears to have seborrheic dermatitis of the right nasal ala and the nasolabial fold. Red with yellow scales. He has a similar area on the R lateral calf and around the umbilicus. He had mepilex on the heels and the sacrum but, there are no areas of breakdown.......they are just protective. He also has a small dry reddened area on the R side of the abd General Skin Exam: dry skin Neuro CN's II-XII intact bilaterally and moves all extremities Neuro Narrative: He has a AFO on the RLE........has foot drop......I do not know if this is old or new and he is not able to tell me. Psych cooperative, activity/motor behavior normal, denies hallucinations, denies homicidal ideation and denies suicidal ideation Appearance: grossly normal and appropriate Attitude: calm, No withdrawn, No bizarre and No uncooperative Activity / Motor Behavior: appropriate eye contact; Negative for psychomotor agitation, fidgetting or restless Assessment & Plan Assessment/Plan (1) Debility: (2) Fall: QUALIFIERS: Encounter type: subsequent encounter Qualified Code(s): W19.XXXD - Unspecified fall, subsequent encounter (3) Closed fracture of right acetabulum: QUALIFIERS: Encounter type: subsequent encounter Sublocation of acetabulum: unspecified portion of acetabulum Fracture alignment: displaced (4) Fracture of right iliac wing: QUALIFIERS: Encounter type: subsequent encounter Fracture type: closed (5) Paranoid schizophrenia: (6) Acute blood loss anemia: (7) Hyponatremia: (8) Psoriasis: (9) Hyperglycemia: (10) Epilepsy: QUALIFIERS: Epilepsy type: unspecified Intractability: not intractable Status epilepticus: without status epilepticus Qualified Code(s): G40.909 - Epilepsy, unspecified, not intractable, without status epilepticus PLAN: Plan PLAN PT for gait stability OT for ADL's ST for evaluation - cognition? Analgesics as needed Bowel protocol Fall precautions Assess for Anxiety/Depression GI prophylaxis -not necessary at this time. He denies nausea/vomiting/abdominal pain/heart burn/history of peptic ulcer disease. DVT prophylaxis with Lovenox 40 mg subcu daily Follow up with Dr. Holcomb, [place] and orthopedic surgery following DC from [facility] AM lab including CMP, CBC, Mag, HGBA1C, vitamin D, carbamazepine level and Phos for the AM. HGB was mildly decreased at the time he presented to the ED. It was also low in October of 2022 and in Jul? etiology? HGB dropped to 6.7 with the surgery. will check a hemoccult stool. He has psoriasis and the sacroiliac joints on the Xray in the ED showed at least partial fusion of the BL SI joints. Psoriatic arthritis? Needs as DEXA in the future to assess for osteoporosis. Olanzapine can cause osteoporosis. Carbamazepine can cause an elevated blood sugar and a low sodium. He has not had a seizure for 30 years.........does he still need an AED? Has he seen a neurologist recently? Obtain Dr. Holcomb's med list, problem list and last 2 progress notes. Charges/Coding Visit Charges Inpatient E&M: 63021 Init Hosp L2
--- NOTE | 2024-10-19 16:38 | REHABEVAL_ITS ---
Admission Information Primary Diagnosis:: Debility secondary to comminuted fracture of the right iliac wing extending into the acetabulum. Status Changes from Prescreening?: No changes Identified Actual Problem List:: Falls, Skin Intergrity, Pain, ALteration in Cmfrt, Bowel, Constipation, Mobility Impaired, Self Care Deficit and Alteration-Leisure Activ. Potential Problem List:: DVT, Bleeding, Infection, UTI, Aspiration, Falls, Skin Integrity and Depression Risk of Complications DVT: LMWH and JOSE Hose Bleeding: Monitor Lab Values, Nursing to Teach Precautions for anti-coagulation therapy., Wound, if applicable, to be assessed every shift. and Stroke patients assessed for lethargy or change in status. Infection: Clinical Staff to Monitor for S/S of infection: and S/S of infection include fever, redness, warmth, etc. Urinary Tract Infection: Monitor for frequency, burning, discomfort, or incontinence. and Nursing will obtain urine sample for urinalysis and C&S when ordered. Aspiration: Clinical staff will monitor for coughing, drooling, congestion., Speech will evaluate swallowing and dsyphasia. and Nursing will monitor patient swallowing during meals. Falls: Patient will be evaluated for Fall Precautions and Patient will be placed on Fall Precautions as indicated per protocol. Skin Breakdown: Nursing will assess skin daily using assessment tool. and Nursing will place on Skin Breakdown Precautions as indicated. Pain: Clinical staff will assess patient's pain level per protocol., Medications will be given, if needed, and the pain level reassessed. and Other methods: Massage, distraction, decrease stimulus, etc. used PRN. Plan of Care Patient requires physician specializing in physical medicine and rehab oversight to provide close medical supervision of rehab issues including: Pain Management, Sleep Problems, Bowel and Bladder, Medical and co-morbidity Management, DVT prophylaxis, Rehabilitation Leadership and Coordination of treatment team Patient needs Physical Therapy: For a minimum of 1 hour and At least 5 out of 7 days Patient needs Physical Therapy to improve:: Mobility, Strengthening, Transfers, Stretching, ROM, Endurance, Stairs, Gait and Balance Patient needs Occupational Therapy: For a minimum of 1 hour and At least 5 out of 7 days Patient needs Occupational Therapy to improve ADL's incl.: Eating, Grooming, Bathing, Dressing, Toileting, Toilet transfers, Community Reintegration, Higher functioning activities, Household tasks, Adaptive Equipment, Splinting and Other activities as determined Patient requires 24/03 Rehabilitation Nursing for: Pain Issues, Identifying and preventing risk factors, Monitoring and reporting current medical conditions, Assisting with ambulation, transfer, and all ADL's, Teaching patients about disease process and medications, Family teaching, Providing safe environment, Bowel and Bladder Issues, Skin integrity and Medication Management Patient needs Pack Press Operator/ Case Management for: Discharge Planning, Arranging Home Equipment or Services and Family Interventions Patient needs Dietary and Nutrition Services for: Adequate Nutrition, Nutritional Supplements and Nutritional Education Goals Goals Patient will remain: free from falls Patient will perform eating at: MOD I level of assist. Patient will perform bed mobility at: MOD I level of assist. Patient will complete transfers from bed to chair at: MOD I level of assist. Patient will ambulate: - (20 feet with a front wheel walker at standby assist maintaining toe-touch weightbearing on the right lower extremity on various surfaces) Patient will complete upper body dressing at: MOD I level of assist. Patient will complete lower body dressing at: MOD I level of assist. (Using adaptive equipment as needed) Patient will complete toilet transfer at: MOD I level of assist. Patient will complete toileting at: MOD I level of assist. Patient will perform bathing at: MOD I level of assist. (He will complete upper body bathing independently and lower body bathing at mod I with adaptive equipment as needed.) Patient will perform Tub/Shower transfer at: - (Supervision with DME as needed) Patient will complete grooming at: MOD I level of assist. (While standing at the sink) Patient will achieve: - (2 steps with 2 handrails at contact-guard assist) Patient will have pain level of: of 3 or less Patient's skin will: remain intact Patient will receive: adequate nutrition. Discharge Planning Pt Prognosis for Sig. Practical Improv. w/in Reasonable Time: Good Estimated Length of stay (days): 21 Anticipated D/C Destination: Home with Home Health Was Preadmission Assessment Accurate?: Yes
[2024-10-19 17:27] VITALS: BP 117/54; PULSE 79; RESP 14; TEMP 36.5; O2SAT 93
[2024-10-19 21:00] VITALS: BP 127/60; PULSE 98
[2024-10-19] MEDS: OLANZapine 2.5 MG Tablet PO (21:05)
[2024-10-19] MEDS: Acetaminophen 325 MG Tablet 650 MG PO (21:05)
[2024-10-19] MEDS: carBAMazepine 200 MG Tablet PO (21:05)
[2024-10-19] MEDS: Senna/Docusate Sodium 1 Tablet 2 TABLET PO (21:05)
[2024-10-19] MEDS: oxyCODONE 5 MG Tablet PO (21:06)
[2024-10-20 04:53] VITALS: BP 128/72; PULSE 82; RESP 16; TEMP 36.7; O2SAT 92
[2024-10-20] MEDS: carBAMazepine 200 MG Tablet PO ×3 (04:56→20:50)
[2024-10-20] MEDS: oxyCODONE 5 MG Tablet PO ×2 (05:21→11:50)
[2024-10-20] MEDS: Acetaminophen 325 MG Tablet 650 MG PO (05:22)
[2024-10-20 06:01] LABS: Absolute Lymphocyte Count 1.31 X10^3/uL (0.83-4.51); Absolute Neutrophil Count 7.2 X10^3/uL (2.0-7.7); Basophil# 0.03 X10^3/uL; Basophil% 0.3 % (0-1); Hematocrit 26.2 % (40-54); Hemoglobin 8.4 g/dL (13.0-16.5); Lymphocyte # 1.31 X10^3/ul (0.83-4.51); Lymphocyte % 13.3 % (19-41); Mean Corp Hgb Conc 32.1 g/dL (32-36); Mean Corpuscular Volume 93.6 fL (80-94); Mean Platelet Vol. 8.8 fl (6.2-12.0); Monocyte# 0.97 X10^3/uL; Monocyte% 9.8 % (0-10); NRBC Flagged by Analyzer 0 % (0-5); Neutrophil # 7.17 X10^3/uL (2.7-7.7); Neutrophil % 72.8 % (47-70); Platelet Count 229 K/mm3 (150-450); RBC Distribution Width CV 15.2 % (11.6-14.6); RBC Distribution Width SD 50.8 fl (35.1-43.9); White Blood Count 9.9 K/mm3 (4.4-11.0)
[2024-10-20 06:32] LABS: ALB/GLOB Ratio 0.6 RATIO (0.9-2.4); AST(SGOT) 63 U/L (15-37); Alanine Aminotransfer ALT/SGPT 58 U/L (16-61); Albumin, Serum 2.3 g/dL (3.2-5.0); Alkaline Phosphatase 87 U/L (45-117); Anion Gap 6 (5-15); BUN 17 mg/dL (7-18); Calcium,Total 8.8 mg/dL (8.5-10.1); Chloride 101 mmol/L (98-107); Creatinine, Serum 0.74 mg/dL (0.70-1.30); EST Glomerular Filtration Rate 109 mL/min (>60); Est Glom Filt Rate - Afr Amer 132 mL/min (>60); Estimated Creatinine Clearance 84.44 ml/min; Globulin 4.1 g/dL (2.2-4.2); Glucose 122 mg/dL (74-106); Phosphorus 3.4 mg/dL (2.5-4.9); Potassium 4.5 mmol/L (3.5-5.1); Protein, Total 6.4 g/dL (6.4-8.2); Sodium Level 136 mmol/L (136-145)
[2024-10-20] MEDS: Senna/Docusate Sodium 1 Tablet 2 TABLET PO ×2 (07:59→20:49)
[2024-10-20] MEDS: Enoxaparin 40 MG/0.4 ML Syringe SC (07:59)
[2024-10-20 08:37] LABS: Hemoglobin A1c 5.6 % (3.8-5.6)
--- NOTE | 2024-10-20 13:28 | NURSING ---
Recieved call form Charo at Dr Schaeffer office. [place]/Suture to be removed 2 week post op, also received order for pelvic x-rays at that time
[2024-10-20] MEDS: Magnesium Hydroxide 30 ML UDC PO (14:04)
[2024-10-20 18:00] VITALS: BP 135/60; PULSE 89; RESP 17; TEMP 36.9; O2SAT 91
[2024-10-20] MEDS: OLANZapine 2.5 MG Tablet PO (20:49)
[2024-10-21 06:00] VITALS: BP 106/55; PULSE 88; RESP 17; TEMP 36.8; O2SAT 91
[2024-10-21] MEDS: carBAMazepine 200 MG Tablet PO ×3 (06:05→21:11)
[2024-10-21] MEDS: Enoxaparin 40 MG/0.4 ML Syringe SC (06:05)
[2024-10-21] MEDS: oxyCODONE 5 MG Tablet PO ×2 (09:23→21:15)
[2024-10-21] MEDS: Senna/Docusate Sodium 1 Tablet 2 TABLET PO ×2 (09:23→21:11)
--- NOTE | 2024-10-21 11:12 | PN_ITS ---
Subjective Subjective Reji was seen on team rounds today. His son Reji and his Catherine participated by phone. Afebrile VSS - Maintaining appropriate oxygen saturation on RA Oral intake - FOOD good FLUIDS good Discussed with nursing -has only had 1 postvoid residual since arriving on rehab and that was 220 and it was done this morning. Anticipate nursing will do 2 more. Reviewed the THERAPY notes Medication list reviewed. Reji tells me that he is sleeping well at night and has a good appetite. He denies lightheadedness and also denies chest pain, shortness of breath, palpitations, nausea/vomiting/abdominal pain and dysuria. He complains of some R calf pain but, only when he is working with therapy. there is no swelling in the distal RLE and no erythema. He is very happy that he had a BM today. He tells me that the pain is well controlled now. He is very cooperative with therapy......having a very difficult time maintaining TTWB on the RLE. Objective Data Objective Data Vital Signs: Vital Signs Temp Pulse Resp BP Pulse Ox O2 Del Method 98.2 F 88 17 106/55 L 91 Room Air 10/21/24 06:00 10/21/24 06:00 10/21/24 06:00 10/21/24 06:00 10/21/24 06:00 10/21/24 06:00 Oxygen Delivery Method Room Air Weight: 192 lb 10.944 oz Body Mass Index (BMI) 29.2 Intake & Output: Intake and Output for Last 24 Hours 10/19/24 10/20/24 10/21/24 23:59 23:59 23:59 Intake Total 240 / 240 1640 / 1720 780 / 780 Output Total 100 / 100 800 / 1200 1300 / 1300 Balance 140 / 140 840 / 520 -520 / -520 Lab / Micro Data 10/20/24 05:31 10/20/24 05:31 Micro: Microbiology 10/21/24 09:00 Stool Stool Occult Blood (ANAID) - Final Physical Exam Const alert and no apparent distress General Appearance: cooperative Resp normal respiratory effort and clear to auscultation bilaterally Resp Narrative: No conversational dyspnea. No cough with deep breathing. Effort and Inspection: Negative for tachypneic Cardio regular rate, regular rhythm and no gallops Cardio Narrative: No ectopy GI normal to inspection, nondistended, normoactive bowel sounds, soft to palpation and non-tender GI Narrative: No guarding with palpation Extremity Extremity Narrative: Some lower calf tenderness on the R.....over the proximal end of the Achilles. General Extremity: Negative for cyanosis or edema Skin Wound Narrative: Incisions are intact with no dehiscence, no carissa-incisional erythema and no purulent discharge. Small amount of serous discharge from the blisters secondary to tape reaction at the top of the right thigh. Neuro CN's II-XII intact bilaterally Neuro Narrative: Has foot drop on the R. Psych affect normal Attitude: No agitated Mood & Affect: Negative for depressed or anxious Assessment & Plan Assessment/Plan (1) Debility: (2) Fall: QUALIFIERS: Encounter type: subsequent encounter Qualified Code(s): W19.XXXD - Unspecified fall, subsequent encounter (3) Closed fracture of right acetabulum: QUALIFIERS: Encounter type: subsequent encounter Sublocation of acetabulum: unspecified portion of acetabulum Fracture alignment: displaced (4) Fracture of right iliac wing: QUALIFIERS: Encounter type: subsequent encounter Fracture type: c losed (5) Paranoid schizophrenia: (6) Acute blood loss anemia: (7) Hyponatremia: (8) Psoriasis: (9) Hyperglycemia: (10) Epilepsy: QUALIFIERS: Epilepsy type: unspecified Intractability: not intractable Status epilepticus: without status epilepticus Qualified Code(s): G40.909 - Epilepsy, unspecified, not intractable, without status epilepticus PLAN: Plan 1. Continue therapy. There are cognitive issues with this patient and he is not always able to maintain the wt bearing restrictions on the RLE. Needs a lot of cuing. Slow responses to instruction at times. These things are likely to slow down progress with therapy. May need to go to SNF following rehab since he can not maintain the TTWB on the RLE which is in place for 6 weeks. 2. DEXA in the future. 3. 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 Charges/Coding Visit Charges Inpatient E&M: 01436 Subs Hosp L2
--- NOTE | 2024-10-21 11:50 | CASEMGMT ---
Social Work SW reviewed chart and noted pt is a poor historian and difficulty answering questions. SW phoned to complete history for initial assessment. SW educated to this worker's role, team meeting and insurance coverage. Throughout converasation, was pleasant but this worker repeated information and slightly defensive with answering questions. SW assured this worker's role is to assist with insurance, discharge planning and additional support. mentioned their son several times. SW inquired if would like son listed as a contact. confirmed and provided contact information. SW updated in chart. SW to speak with pt and shortly at Team meeting. - SW phoned son. Introduced self and role and the prior conversation with . SW explained insurance coverage. Inquired if son had any concerns with homegoing and his goals for pt's DC, if could care for pt from a physical and cognitive standpoint, if needed. Son expressed concern with pt being able to return home and confirmed cannot care for pt. though, denied any cognitive concerns with . Son explained the Dr at [facility] explained to pt/family that pt is TTBW for 6 weeks and will likely need a SNF for additional therapy after initial IRU stay. Son is confident this will be the DC plan. SW explained IDT will make recommendations for DC and this worker will assist with process. Informed son of Team meeting and offered for him to join. Son agreed and appreciative of involvement. Aggie Akhtar GAME PROTECTOR WORD PROCESSING SUPERVISOR
[2024-10-21] MEDS: Clobetasol Propionate 0.05% Cream 1 APPLIC TOPICAL ×2 (12:24→21:11)
--- NOTE | 2024-10-21 12:53 | CASEMGMT ---
Social Work IDT met with patient at bedside, then conference call with and son, for Team meeting. Discussed patient's progress in PT/OT/SN. ST to eval. SW educated to [facility] (worker's compensation) for insurance coverage with NRD 11/02. SW corresponding with worker's comp rep for discussion of coverage and potential LOS. SW referenced previous conversation with son about Dr from previous hospital about likely need continued therapy in a SNF after RU stay d/t TTWB for 6 weeks, and is unable to assist. Pt/family in agreement. SW will assist with referral process and providing options closer to DC. Pt/family appreciative. SW will continue to follow. Will reTeam weekly. Aggie Akhtar FIELD TRAINER SHIM PLUG CUTTER
[2024-10-21 14:23] LABS: Vitamin D,25 Hydroxy 33.5 ng/mL
[2024-10-21 18:00] VITALS: BP 129/57; PULSE 99; RESP 16; TEMP 36.2; O2SAT 92
[2024-10-21] MEDS: OLANZapine 2.5 MG Tablet PO (21:10)
[2024-10-21] MEDS: Acetaminophen 325 MG Tablet 650 MG PO (21:15)
[2024-10-21] MEDS: Menthol/Lanolin/Calamine/Znox 113 GM Tube 1 APPLIC TOPICAL (21:20)
[2024-10-21 22:27] VITALS: RESP 16
[2024-10-22] MEDS: carBAMazepine 200 MG Tablet PO ×3 (04:56→21:35)
[2024-10-22] MEDS: Enoxaparin 40 MG/0.4 ML Syringe SC (04:56)
[2024-10-22] MEDS: Menthol/Lanolin/Calamine/Znox 113 GM Tube 1 APPLIC TOPICAL ×2 (04:57→21:38)
[2024-10-22 05:12] VITALS: BP 134/70; PULSE 79; RESP 16; TEMP 36.6; O2SAT 92
[2024-10-22] MEDS: oxyCODONE 5 MG Tablet PO ×2 (05:34→21:38)
[2024-10-22 06:00] VITALS: BMI 28.6
[2024-10-22] MEDS: Senna/Docusate Sodium 1 Tablet 2 TABLET PO ×2 (07:39→21:35)
[2024-10-22] MEDS: Clobetasol Propionate 0.05% Cream 1 APPLIC TOPICAL ×2 (07:39→21:35)
[2024-10-22 17:43] VITALS: BP 124/49; PULSE 82; RESP 20; TEMP 36.4; O2SAT 95
[2024-10-22] MEDS: OLANZapine 2.5 MG Tablet PO (21:36)
[2024-10-23] MEDS: Enoxaparin 40 MG/0.4 ML Syringe SC (05:58)
[2024-10-23] MEDS: carBAMazepine 200 MG Tablet PO ×3 (05:58→21:08)
[2024-10-23] MEDS: Menthol/Lanolin/Calamine/Znox 113 GM Tube 1 APPLIC TOPICAL ×2 (05:59→20:48)
[2024-10-23 06:00] VITALS: BP 109/73; PULSE 76; RESP 18; TEMP 36.8; O2SAT 91
[2024-10-23] MEDS: oxyCODONE 5 MG Tablet PO ×2 (06:01→20:48)
[2024-10-23] MEDS: Senna/Docusate Sodium 1 Tablet 2 TABLET PO ×2 (10:15→20:48)
[2024-10-23] MEDS: Clobetasol Propionate 0.05% Cream 1 APPLIC TOPICAL ×2 (10:16→20:48)
[2024-10-23 18:00] VITALS: BP 106/54; PULSE 90; RESP 16; TEMP 37.6; O2SAT 95
[2024-10-23] MEDS: Acetaminophen 325 MG Tablet 650 MG PO (20:49)
[2024-10-23] MEDS: OLANZapine 2.5 MG Tablet PO (21:08)
[2024-10-24] MEDS: carBAMazepine 200 MG Tablet PO ×3 (05:20→22:02)
[2024-10-24] MEDS: Enoxaparin 40 MG/0.4 ML Syringe SC (05:20)
[2024-10-24] MEDS: Acetaminophen 325 MG Tablet 650 MG PO ×2 (05:21→22:03)
[2024-10-24] MEDS: oxyCODONE 5 MG Tablet PO ×2 (05:21→22:03)
[2024-10-24] MEDS: Menthol/Lanolin/Calamine/Znox 113 GM Tube 1 APPLIC TOPICAL ×2 (05:22→22:04)
[2024-10-24 06:42] VITALS: BP 107/63; PULSE 77; RESP 15; TEMP 36.4; O2SAT 94
[2024-10-24 07:03] VITALS: O2SAT 94
[2024-10-24] MEDS: Clobetasol Propionate 0.05% Cream 1 APPLIC TOPICAL ×2 (10:58→22:03)
[2024-10-24] MEDS: Senna/Docusate Sodium 1 Tablet 2 TABLET PO ×2 (10:58→22:02)
[2024-10-24 18:00] VITALS: BP 121/54; PULSE 72; RESP 16; TEMP 36.9; O2SAT 95
[2024-10-24] MEDS: OLANZapine 2.5 MG Tablet PO (22:02)
[2024-10-25] MEDS: carBAMazepine 200 MG Tablet PO ×3 (05:06→20:24)
[2024-10-25] MEDS: Enoxaparin 40 MG/0.4 ML Syringe SC (05:06)
[2024-10-25] MEDS: Menthol/Lanolin/Calamine/Znox 113 GM Tube 1 APPLIC TOPICAL ×2 (05:07→20:27)
[2024-10-25 05:16] VITALS: BP 122/63; PULSE 70; RESP 17; TEMP 36.4; O2SAT 96
[2024-10-25] MEDS: Acetaminophen 325 MG Tablet 650 MG PO (06:18)
[2024-10-25] MEDS: oxyCODONE 5 MG Tablet PO (06:18)
[2024-10-25] MEDS: Clobetasol Propionate 0.05% Cream 1 APPLIC TOPICAL ×2 (07:59→20:25)
[2024-10-25] MEDS: Senna/Docusate Sodium 1 Tablet 2 TABLET PO ×2 (07:59→20:25)
--- NOTE | 2024-10-25 09:27 | PCM.PROGNOTE ---
Subjective Subjective Afebrile VSS - Maintaining appropriate oxygen saturation on RA Oral intake - FOOD good FLUIDS good Discussed with nursing - no problems that need addressed Reviewed the THERAPY notes - better able to maintain TTWB on the RLE now. Medication list reviewed. Taking Oxy usually twice a day.....in the AM and at HS. Tells me that his pain is well controlled. Denies WHEELER, lightheadedness, CP, SOB, palpitations, nausea/vomiting, abd pain, calf pain and dysuria. Objective Data Objective Data Vital Signs: Vital Signs Temp Pulse Resp BP Pulse Ox O2 Del Method 97.5 F L 70 17 122/63 H 96 Room Air 10/25/24 05:16 10/25/24 05:16 10/25/24 05:16 10/25/24 05:16 10/25/24 05:16 10/25/24 05:16 Oxygen Delivery Method Room Air Weight: 189 lb 2.506 oz Body Mass Index (BMI) 28.6 Intake & Output: Intake and Output for Last 24 Hours 10/23/24 10/24/24 10/25/24 23:59 23:59 23:59 Intake Total 3230 / 3230 2230 / 2230 460 / 460 Output Total 2700 / 2700 2325 / 2325 250 / 250 Balance 530 / 530 -95 / -95 210 / 210 Lab / Micro Data 10/20/24 05:31 10/20/24 05:31 Micro: Microbiology 10/21/24 09:00 Stool Stool Occult Blood (ANAID) - Final Physical Exam Const alert and no apparent distress Constitutional Narrative: Cooperative. Speech and thought processing is slow. HEENT moist oral mucous membranes Resp normal respiratory effort and clear to auscultation bilaterally Resp Narrative: Has a difficult time understanding what I want him to do when I ask him to take a deep breath. No conversational dyspnea. Effort and Inspection: Negative for tachypneic, labored or uses accessory muscles Cardio regular rate, regular rhythm and no gallops Cardio Narrative: No ectopy GI normal to inspection, nondistended, normoactive bowel sounds, soft to palpation and non-tender GI Narrative: No guarding with palpation Extremity no calf tenderness General Extremity: Negative for edema Skin Wound Narrative: The incision is intact with no dehiscence, no erythema and no DC. There is a very small amount of redness in the area of the mid incision but, there is no increased warmth to touch......it looks more like a reaction to the rosalee. He has no tenderness to palpation around the rosalee. The psoriatic rash is looking better with the Clobetasol. Assessment & Plan Assessment/Plan (1) Debility: (2) Fall: QUALIFIERS: Encounter type: subsequent encounter Qualified Code(s): W19.XXXD - Unspecified fall, subsequent encounter (3) Closed fracture of right acetabulum: QUALIFIERS: Encounter type: subsequent encounter Sublocation of acetabulum: unspecified portion of acetabulum Fracture alignment: displaced (4) Fracture of right iliac wing: QUALIFIERS: Encounter type: subsequent encounter Fracture type: closed (5) Paranoid schizophrenia: (6) Acute blood loss anemia: (7) Hyponatremia: (8) Psoriasis: (9) Hyperglycemia: (10) Epilepsy: QUALIFIERS: Epilepsy type: unspecified Intractability: not intractable Status epilepticus: without status epilepticus Qualified Code(s): G40.909 - Epilepsy, unspecified, not intractable, without status epilepticus PLAN: Plan 1. Continue therapy 2. Check H&H in a.m. 3. COntinue the Oxy PRN.......he tells me that the pain in the RLE is well controlled. Charges/Coding Visit Charges Inpatient E&M: 35151 Subs Hosp L1
[2024-10-25 18:00] VITALS: BP 141/58; PULSE 95; RESP 15; TEMP 36.3; O2SAT 94
[2024-10-25 20:38] VITALS: PULSE 95; RESP 15
[2024-10-25] MEDS: OLANZapine 2.5 MG Tablet PO (21:27)
[2024-10-26] MEDS: Menthol/Lanolin/Calamine/Znox 113 GM Tube 1 APPLIC TOPICAL ×2 (05:00→21:07)
[2024-10-26] MEDS: carBAMazepine 200 MG Tablet PO ×3 (05:00→21:05)
[2024-10-26] MEDS: Enoxaparin 40 MG/0.4 ML Syringe SC (05:00)
[2024-10-26] MEDS: Acetaminophen 325 MG Tablet 650 MG PO (05:03)
[2024-10-26] MEDS: oxyCODONE 5 MG Tablet PO ×3 (05:04→20:59)
[2024-10-26 06:00] VITALS: BP 114/63; PULSE 74; RESP 14; TEMP 36.4; O2SAT 94
[2024-10-26] MEDS: Clobetasol Propionate 0.05% Cream 1 APPLIC TOPICAL ×2 (08:35→21:13)
[2024-10-26] MEDS: Senna/Docusate Sodium 1 Tablet 2 TABLET PO ×2 (08:36→21:06)
[2024-10-26 08:39] LABS: Hematocrit 27.5 % (40-54); Hemoglobin 8.8 g/dL (13.0-16.5)
--- NOTE | 2024-10-26 08:54 | PCM.PROGNOTE ---
Subjective Subjective Afebrile VSS - Maintaining appropriate oxygen saturation on RA Oral intake - FOOD good FLUIDS good Discussed with nursing - no problems that need addressed Reviewed the THERAPY notes Medication list reviewed. Hemoglobin is 8.8 and stable. Pain is well controlled and he tells me that he is sleeping well. No CP, SOB, palpitations or calf pain. Objective Data Objective Data Vital Signs: Vital Signs Temp Pulse Resp BP Pulse Ox O2 Del Method 97.6 F L 74 14 114/63 94 Room Air 10/26/24 06:00 10/26/24 06:00 10/26/24 06:00 10/26/24 06:00 10/26/24 06:00 10/26/24 06:00 Oxygen Delivery Method Room Air Weight: 189 lb 2.506 oz Body Mass Index (BMI) 28.6 Intake & Output: Intake and Output for Last 24 Hours 10/24/24 10/25/24 10/26/24 23:59 23:59 23:59 Intake Total 2230 / 2230 2275 / 2275 600 / 600 Output Total 2325 / 2325 2400 / 2400 500 / 500 Balance -95 / -95 -125 / -125 100 / 100 Lab / Micro Data 10/26/24 07:35 10/20/24 05:31 Labs: Laboratory Results - last 24 hr 10/26/24 07:35: Hgb 8.8 L, Hct 27.5 L Micro: Microbiology 10/21/24 09:00 Stool Stool Occult Blood (ANAID) - Final Physical Exam Const alert and no apparent distress HEENT moist oral mucous membranes Resp normal respiratory effort and clear to auscultation bilaterally Cardio regular rate, regular rhythm and no gallops Cardio Narrative: No ectopy GI normal to inspection, nondistended, normoactive bowel sounds, soft to palpation and non-tender GI Narrative: No guarding with palpation Extremity no calf tenderness General Extremity: Negative for edema Skin Wound Narrative: Incision is intact with no dehiscence and no DC. No carissa-incisional erythema. Neuro CN's II-XII intact bilaterally Assessment & Plan Assessment/Plan (1) Debility: (2) Fall: QUALIFIERS: Encounter type: subsequent encounter Qualified Code(s): W19.XXXD - Unspecified fall, subsequent encounter (3) Closed fracture of right acetabulum: QUALIFIERS: Encounter type: subsequent encounter Sublocation of acetabulum: unspecified portion of acetabulum Fracture alignment: displaced (4) Fracture of right iliac wing: QUALIFIERS: Encounter type: subsequent encounter Fracture type: closed (5) Paranoid schizophrenia: (6) Acute blood loss anemia: (7) Hyponatremia: (8) Psoriasis: (9) Hyperglycemia: (10) Epilepsy: QUALIFIERS: Epilepsy type: unspecified Intractability: not intractable Status epilepticus: without status epilepticus Qualified Code(s): G40.909 - Epilepsy, unspecified, not intractable, without status epilepticus PLAN: Plan 1. Continue therapy Charges/Coding Visit Charges Inpatient E&M: 69282 Subs Hosp L1
[2024-10-26 17:57] VITALS: BP 124/62; PULSE 72; RESP 16; TEMP 36.6; O2SAT 95
[2024-10-26] MEDS: OLANZapine 2.5 MG Tablet PO (21:06)
[2024-10-26 22:00] VITALS: RESP 16
[2024-10-27 06:00] VITALS: BP 118/69; PULSE 75; RESP 15; TEMP 36.6; O2SAT 94
[2024-10-27] MEDS: Menthol/Lanolin/Calamine/Znox 113 GM Tube 1 APPLIC TOPICAL ×2 (07:04→22:04)
[2024-10-27] MEDS: carBAMazepine 200 MG Tablet PO ×3 (07:04→22:04)
[2024-10-27] MEDS: Enoxaparin 40 MG/0.4 ML Syringe SC (07:05)
[2024-10-27] MEDS: Clobetasol Propionate 0.05% Cream 1 APPLIC TOPICAL ×2 (08:32→22:05)
[2024-10-27] MEDS: Cephalexin 500 MG Capsule PO ×2 (14:00→22:04)
[2024-10-27 17:22] VITALS: BP 125/60; PULSE 80; RESP 17; TEMP 36.6; O2SAT 94
[2024-10-27] MEDS: Senna/Docusate Sodium 1 Tablet 2 TABLET PO (22:03)
[2024-10-27] MEDS: OLANZapine 2.5 MG Tablet PO (22:04)
[2024-10-28] MEDS: Acetaminophen 325 MG Tablet 650 MG PO (04:11)
[2024-10-28] MEDS: Enoxaparin 40 MG/0.4 ML Syringe SC (04:11)
[2024-10-28] MEDS: oxyCODONE 5 MG Tablet PO (04:11)
[2024-10-28] MEDS: Menthol/Lanolin/Calamine/Znox 113 GM Tube 1 APPLIC TOPICAL ×2 (04:13→21:02)
[2024-10-28 05:25] VITALS: BP 144/72; PULSE 69; RESP 16; TEMP 36.7; O2SAT 95
[2024-10-28] MEDS: carBAMazepine 200 MG Tablet PO ×3 (05:50→21:00)
[2024-10-28] MEDS: Cephalexin 500 MG Capsule PO ×3 (05:50→21:00)
[2024-10-28] MEDS: Senna/Docusate Sodium 1 Tablet 2 TABLET PO (07:55)
[2024-10-28] MEDS: Clobetasol Propionate 0.05% Cream 1 APPLIC TOPICAL ×2 (07:55→21:00)
--- NOTE | 2024-10-28 09:03 | PN_ITS ---
Subjective Subjective Day #2 Maco Mendoza was seen on team rounds today. His was present in the room and son Reji participated by phone. All questions were answered to their satisfaction. Afebrile VSS - Maintaining appropriate oxygen saturation on RA Oral intake - FOOD good FLUIDS good Discussed with nursing - no problems that need addressed Reviewed the THERAPY notes Medication list reviewed. No complaints today. Denies CP, cough, palpiattions, SOB, lightheadedness, dysuria. Denies incisional pain. Having regular BM's Objective Data Objective Data Vital Signs: Vital Signs Temp Pulse Resp BP Pulse Ox O2 Del Method 98.0 F 69 16 144/72 H 95 Room Air 10/28/24 05:10/28/24 05:25 10/28/24 05:25 10/28/24 05:10/28/24 05:10/28/24 05:25 Oxygen Delivery Method Room Air Weight: 189 lb 2.506 oz Body Mass Index (BMI) 28.6 Intake & Output: Intake and Output for Last 24 Hours 10/26/24 10/27/24 10/28/24 23:59 23:59 23:59 Intake Total 1680 / 1680 1860 / 2160 1280 / 1280 Output Total 2125 / 2325 2650 / 3050 1700 / 1700 Balance -445 / -645 -790 / -890 -420 / -420 Lab / Micro Data 10/26/24 07:35 10/20/24 05:31 Micro: Microbiology 10/21/24 09:00 Stool Stool Occult Blood (ANAID) - Final Physical Exam Const alert and no apparent distress HEENT moist oral mucous membranes Resp normal respiratory effort and clear to auscultation bilaterally Cardio regular rate, regular rhythm and no gallops Cardio Narrative: No ectopy GI normal to inspection, nondistended, normoactive bowel sounds, soft to palpation and non-tender GI Narrative: No guarding with palpation Extremity no calf tenderness Extremity Narrative: He has no edema of the LLE. He has edema of the RLE. No calf tenderness. JOSE hose are in place. Skin Skin Narrative: All incisions are intact with no dehiscence. There is some carissa-incisional erythema but no significant increased warmth to touch. No discharge could be expressed from the wounds. Redness seems a little less today than it was yesterday and the patient tells me it feels better. The psoriasis rash is much better. the patch on the R lateral calf has no scales now and the dryness is much improved. the rash on the face has resolved and the rash around the umbilicus is no longer dry and scaley. Assessment & Plan Assessment/Plan (1) Debility: (2) Fall: QUALIFIERS: Encounter type: subsequent encounter Qualified Code(s): W19.XXXD - Unspecified fall, subsequent encounter (3) Closed fracture of right acetabulum: QUALIFIERS: Encounter type: subsequent encounter Sublocation of acetabulum: unspecified portion of acetabulum Fracture alignment: displaced (4) Fracture of right iliac wing: QUALIFIERS: Encounter type: subsequent encounter Fracture type: c losed (5) Paranoid schizophrenia: (6) Acute blood loss anemia: (7) Hyponatremia: (8) Psoriasis: (9) Hyperglycemia: PLAN: Hemoglobin A1c is normal. (10) Epilepsy: QUALIFIERS: Epilepsy type: unspecified Intractability: not intractable Status epilepticus: without status epilepticus Qualified Code(s): G40.909 - Epilepsy, unspecified, not intractable, without status epilepticus (11) Cellulitis: QUALIFIERS: Site of cellulitis: trunk Site of cellulitis of trunk: abdominal wall Qualified Code(s): L03.311 - Cellulitis of abdominal wall PLAN: Plan 1. Continue therapy 2. No changes to the drug regimen today 3. X-rays ordered for tomorrow and will be sent to the orthopedic surgeon 4. Continue Keflex - I feel like most of the redness is due to reaction to the rosalee and not cellulitis. he has no fever and there is no DC from any incision. Needing more assistance than what his would be able to provide. Still max assistance with toileting...only min assist with toilet transfer. CAn not manage his hygiene or clothing when toileting. Has made some progress with TTWB. I do not really see him being able to go home until he can bear more weight and maintain balance when standing after toileting to manage hygiene. 5. Check a CBC with differential in the a.m. 6. RX calcium and vitamin D supplements. Vitamin d was checked and it is low normal. NEEDS A DEXA POST DC. OLANZAPINE CAUSES OSTEOPOROSIS. Charges/Coding Visit Charges Inpatient E&M: 56376 Subs Hosp L2
--- NOTE | 2024-10-28 13:27 | CASEMGMT ---
Social Work IDT met with patient and at bedside, then son via conference call, for Team meeting. Discussed patient's progress in PT/OT/SN. Educated to worker's comp NRD 11/02. SW to bench worker binding's comp CM to inquire about specifics for LOS in [place] and coverage for SNF. Pt is TTWB and will not be able to return home with until he returns to [place]. If pt cannot remain in [place] until fully recovered, pt will need a SNF. SW will keep pt/family updated. Will continue to follow for DC planning. Will ReTeam weekly. Aggie Akhtar GENERAL COUNSEL FOOD SERVICES DIRECTOR
[2024-10-28] MEDS: Calcium Carbonate 500 MG Tablet PO (16:59)
[2024-10-28 17:37] VITALS: BP 148/69; PULSE 71; RESP 16; TEMP 37.1; O2SAT 96
[2024-10-28] MEDS: OLANZapine 2.5 MG Tablet PO (21:00)
[2024-10-29] MEDS: oxyCODONE 5 MG Tablet PO ×2 (03:43→14:49)
[2024-10-29] MEDS: Acetaminophen 325 MG Tablet 650 MG PO ×2 (03:43→14:49)
[2024-10-29] MEDS: Menthol/Lanolin/Calamine/Znox 113 GM Tube 1 APPLIC TOPICAL ×2 (03:44→22:04)
[2024-10-29] MEDS: Cephalexin 500 MG Capsule PO ×3 (05:18→22:03)
[2024-10-29] MEDS: Enoxaparin 40 MG/0.4 ML Syringe SC (05:18)
[2024-10-29] MEDS: carBAMazepine 200 MG Tablet PO ×3 (05:18→22:03)
[2024-10-29 05:47] VITALS: BP 126/50; PULSE 67; RESP 17; TEMP 36.7; O2SAT 96
[2024-10-29 05:48] VITALS: BMI 28.9
[2024-10-29 07:21] LABS: Absolute Lymphocyte Count 0.89 X10^3/uL (0.83-4.51); Absolute Neutrophil Count 6.7 X10^3/uL (2.0-7.7); Basophil# 0.04 X10^3/uL; Basophil% 0.5 % (0-1); Eosinophil# 0.04 X10^3/uL; Eosinophils% 0.5 % (0-5); Hematocrit 28.4 % (40-54); Hemoglobin 9.4 g/dL (13.0-16.5); Lymphocyte # 0.89 X10^3/ul (0.83-4.51); Lymphocyte % 10.1 % (19-41); Mean Corp Hgb Conc 33.1 g/dL (32-36); Mean Corpuscular Hgb 30.4 pg (27.0-32.0); Mean Corpuscular Volume 91.9 fL (80-94); Mean Platelet Vol. 8.3 fl (6.2-12.0); Monocyte# 0.89 X10^3/uL; Monocyte% 10.1 % (0-10); NRBC Flagged by Analyzer 0 % (0-5); Neutrophil # 6.73 X10^3/uL (2.7-7.7); Neutrophil % 76.7 % (47-70); Platelet Count 344 K/mm3 (150-450); RBC Distribution Width CV 15.9 % (11.6-14.6); RBC Distribution Width SD 52.2 fl (35.1-43.9); Red Blood Count 3.09 M/mm3 (4.6-6.2); White Blood Count 8.8 K/mm3 (4.4-11.0)
--- NOTE | 2024-10-29 08:02 | RAD_ITS ---
PROCEDURE: PELVIS 1 OR 2 VIEWS REASON FOR EXAM: Follow-up for pelvic fracture and right acetabular fracture. TECHNIQUE: 3 view(s) of the pelvis. COMPARISON: Comparison is made with prior study dated October 13, 2024. FINDINGS: The patient is status post open reduction internal fixation of the right acetabular fracture with screw and mesh placement as well as screw overlying the supra-acetabular region of the right hip joint. There is also evidence of screw fixation of an avulsion fracture of the iliac bone. Satisfactory reduction. RAD/Pelvis 1 or 2 Views IMPRESSION: Satisfactory reduction. Reading Location: [id number]
[2024-10-29] MEDS: Calcium Carbonate 500 MG Tablet PO ×2 (09:11→17:11)
[2024-10-29] MEDS: Senna/Docusate Sodium 1 Tablet 2 TABLET PO ×2 (09:12→22:03)
[2024-10-29] MEDS: Cholecalciferol (VIT D3) 25 MCG TABLET (1,000 UNITS) PO (09:12)
[2024-10-29] MEDS: Clobetasol Propionate 0.05% Cream 1 APPLIC TOPICAL (09:13)
--- NOTE | 2024-10-29 09:23 | PCM.PROGNOTE ---
Subjective Subjective Afebrile Vital signs stable Good fluid intake. White blood cell count today is 8.8. There are 77% neutrophils and 2.1% immature granulocytes. Hemoglobin is improving and is 9.4 today. Platelets are within normal limits. XRAY today shows sastisfactory reduction per radiologist. Denies pain in the R hip and also denies abd pain. No CP, SOB, lightheadedness or calf pain. Rica were removed by nursing today. alert, NAD Lungs CTA, not really able to take a deep breath through his mouth......just does not understand what I want of him. Not tachypneic. No orthopnea. No cough. HRRR Some swelling in the RLE. No significant change since yesterday. abd is soft and NT. Normal BS's. The incisions are intact with no dehiscence. The erythema is less. the erythema is around the rica insertion points. there is no purulent DC and there is no increased warmth to touch today. No blisters/bullae. The rash on the face has completely resolved. Impressions 1. Debility due to fall with pelvic fracture - Continue therapy 2. Cellulitis - COntinue Keflex for a total of 7 days. 3. DC CLobetasol and transition to a lower potency steroid. Apply Hydrocortisone cream 2.5% to the anterior abdominal wall on the right, periumbilical area and right lateral calf twice daily. Discontinue steroids on the face. Objective Data Objective Data Vital Signs: Vital Signs Temp Pulse Resp BP Pulse Ox O2 Del Method 98.0 F 67 17 126/50 H 96 Room Air 10/29/24 05:47 10/29/24 05:47 10/29/24 05:47 10/29/24 05:47 10/29/24 05:47 10/29/24 05:47 Oxygen Delivery Method Room Air Weight: 190 lb 4.143 oz Body Mass Index (BMI) 28.9 Intake & Output: Intake and Output for Last 24 Hours 10/27/24 10/28/24 10/29/24 23:59 23:59 23:59 Intake Total 1860 / 2160 2460 / 2460 850 / 850 Output Total 2650 / 3050 2600 / 2600 1200 / 1200 Balance -790 / -890 -140 / -140 -350 / -350 Lab / Micro Data 10/29/24 06:49 10/20/24 05:31 Labs: Laboratory Results - last 24 hr 10/29/24 06:49: WBC 8.8, RBC 3.09 L, Hgb 9.4 L, Hct 28.4 L, MCV 91.9, MCH 30.4, MCHC 33.1, RDW Std Deviation 52.2 H, RDW Coeff of Michaela 15.9 H, Plt Count 344, MPV 8.3, Immature Gran % (Auto) 2.100 H, Neut % (Auto) 76.7 H, Lymph % (Auto) 10.1 L, [place] % (Auto) 10.1 H, Eos % (Auto) 0.5, Baso % (Auto) 0.5, Absolute Neuts (auto) 6.7, Absolute Lymphs (auto) 0.89, Nucleated RBC % 0 Micro: Microbiology 10/21/24 09:00 Stool Stool Occult Blood (ANAID) - Final Radiography Diagnostic Testing: Radiology Impression Pelvis X-Ray 10/29/24 08:02 IMPRESSION: Satisfactory reduction. Reading Location: [facility] Charges/Coding Visit Charges Inpatient E&M: 01979 Subs Hosp L1
[2024-10-29] MEDS: Hydrocortisone 2.5% Crm 1 APPLIC TOPICAL ×2 (11:17→22:05)
[2024-10-29 17:29] VITALS: BP 157/77; PULSE 75; RESP 16; TEMP 36.6; O2SAT 95
[2024-10-29 22:00] VITALS: PULSE 75; RESP 16
[2024-10-29] MEDS: OLANZapine 2.5 MG Tablet PO (22:03)
[2024-10-30] MEDS: Acetaminophen 325 MG Tablet 650 MG PO (04:36)
[2024-10-30] MEDS: oxyCODONE 5 MG Tablet PO ×2 (04:37→21:29)
[2024-10-30] MEDS: Enoxaparin 40 MG/0.4 ML Syringe SC (05:03)
[2024-10-30] MEDS: Cephalexin 500 MG Capsule PO ×3 (05:03→21:28)
[2024-10-30] MEDS: carBAMazepine 200 MG Tablet PO ×3 (05:03→21:29)
[2024-10-30] MEDS: Menthol/Lanolin/Calamine/Znox 113 GM Tube 1 APPLIC TOPICAL ×2 (05:03→21:28)
[2024-10-30 06:00] VITALS: BP 138/62; PULSE 71; RESP 16; TEMP 36.5; O2SAT 93
[2024-10-30] MEDS: Senna/Docusate Sodium 1 Tablet 2 TABLET PO ×2 (08:40→21:28)
[2024-10-30] MEDS: Cholecalciferol (VIT D3) 25 MCG TABLET (1,000 UNITS) PO (08:40)
[2024-10-30] MEDS: Calcium Carbonate 500 MG Tablet PO ×2 (08:40→17:19)
[2024-10-30] MEDS: Hydrocortisone 2.5% Crm 1 APPLIC TOPICAL ×2 (12:35→21:28)
[2024-10-30 17:33] VITALS: BP 129/68; PULSE 89; RESP 17; TEMP 36.5; O2SAT 93
[2024-10-30] MEDS: OLANZapine 2.5 MG Tablet PO (21:29)
[2024-10-30] MEDS: Nystatin Powder 15gm Bottle 1 APPLIC TOPICAL (22:23)
[2024-10-31 06:00] VITALS: BP 136/69; PULSE 69; RESP 16; TEMP 36.6; O2SAT 92
[2024-10-31] MEDS: Cephalexin 500 MG Capsule PO ×3 (06:13→20:31)
[2024-10-31] MEDS: Nystatin Powder 15gm Bottle 1 APPLIC TOPICAL ×3 (06:13→20:32)
[2024-10-31] MEDS: carBAMazepine 200 MG Tablet PO ×3 (06:13→20:31)
[2024-10-31] MEDS: Enoxaparin 40 MG/0.4 ML Syringe SC (06:13)
[2024-10-31] MEDS: oxyCODONE 5 MG Tablet PO ×2 (06:13→20:34)
[2024-10-31] MEDS: Acetaminophen 325 MG Tablet 650 MG PO (06:13)
[2024-10-31] MEDS: Menthol/Lanolin/Calamine/Znox 113 GM Tube 1 APPLIC TOPICAL ×2 (06:14→20:33)
[2024-10-31] MEDS: Calcium Carbonate 500 MG Tablet PO ×2 (07:49→16:55)
[2024-10-31] MEDS: Senna/Docusate Sodium 1 Tablet 2 TABLET PO ×2 (07:49→20:31)
[2024-10-31] MEDS: Cholecalciferol (VIT D3) 25 MCG TABLET (1,000 UNITS) PO (07:49)
[2024-10-31] MEDS: Hydrocortisone 2.5% Crm 1 APPLIC TOPICAL ×2 (13:33→20:31)
[2024-10-31 18:00] VITALS: BP 117/60; PULSE 78; RESP 16; TEMP 36.4; O2SAT 100
[2024-10-31] MEDS: OLANZapine 2.5 MG Tablet PO (20:31)
[2024-11-01] MEDS: Cephalexin 500 MG Capsule PO ×3 (06:30→21:21)
[2024-11-01] MEDS: Enoxaparin 40 MG/0.4 ML Syringe SC (06:30)
[2024-11-01] MEDS: Nystatin Powder 15gm Bottle 1 APPLIC TOPICAL ×2 (06:36→14:05)
[2024-11-01] MEDS: carBAMazepine 200 MG Tablet PO ×3 (06:36→21:21)
[2024-11-01] MEDS: Menthol/Lanolin/Calamine/Znox 113 GM Tube 1 APPLIC TOPICAL ×2 (06:36→21:22)
[2024-11-01] MEDS: Acetaminophen 325 MG Tablet 650 MG PO (06:38)
[2024-11-01 06:42] VITALS: BP 125/77; PULSE 80; RESP 16; TEMP 36.3; O2SAT 95
[2024-11-01] MEDS: Senna/Docusate Sodium 1 Tablet 2 TABLET PO (08:39)
[2024-11-01] MEDS: Cholecalciferol (VIT D3) 25 MCG TABLET (1,000 UNITS) PO (08:40)
[2024-11-01] MEDS: Calcium Carbonate 500 MG Tablet PO ×2 (08:40→16:38)
[2024-11-01] MEDS: Hydrocortisone 2.5% Crm 1 APPLIC TOPICAL ×2 (08:40→21:20)
--- NOTE | 2024-11-01 11:14 | PN_ITS ---
Subjective Subjective Day #6/7 of Keflex for cellulitis of the right lower abdominal wall around the incision. Afebrile VSS - Maintaining appropriate oxygen saturation on RA Oral intake - FOOD good FLUIDS good Weight is stable Last bowel movement was yesterday. Prior to that had not moved his bowels for 3 days. This seems to be his pattern. Has not had any MOM since 10/20/24. Discussed with nursing - no problems that need addressed Reviewed the THERAPY notes Medication list reviewed. On enoxaparin for DVT prophylaxis. Has been taking oxycodone usually twice a day in the morning and at night. Reji tells me that his pain is adequately controlled. He is sleeping well at night and he has good appetite. He denies lightheadedness, chest pain, cough, shortness of breath, nausea/vomiting/abdominal pain, dysuria and calf pain. Objective Data Objective Data Vital Signs: Vital Signs Temp Pulse Resp BP Pulse Ox O2 Del Method 97.3 F L 80 16 125/77 H 95 Room Air 11/01/24 06:42 11/01/24 06:42 11/01/24 06:42 11/01/24 06:42 11/01/24 06:42 11/01/24 06:42 Oxygen Delivery Method Room Air Weight: 190 lb 4.143 oz Body Mass Index (BMI) 28.9 Intake & Output: Intake and Output for Last 24 Hours 10/30/24 10/31/24 11/01/24 23:59 23:59 23:59 Intake Total 2250 / 2250 2080 / 2080 240 / 240 Output Total 2225 / 2225 2200 / 2200 750 / 750 Balance -120 / -120 -510 / -510 Lab / Micro Data 10/29/24 06:49 10/20/24 05:31 Micro: Microbiology 10/21/24 09:00 Stool Stool Occult Blood (ANAID) - Final Physical Exam Const alert and no apparent distress General Appearance: cooperative HEENT moist oral mucous membranes HEENT Narrative: Not thrush. Denies mouth pain. Resp normal respiratory effort and clear to auscultation bilaterally Resp Narrative: No cough Cardio regular rate and regular rhythm Cardio Narrative: No ectopy GI normal to inspection, nondistended, normoactive bowel sounds, soft to palpation and non-tender Extremity Extremity Narrative: Mild swelling of the distal RLE/ankle. This is improving. No calf pain with compression. No redness of the distal RLE. Skin Wound Narrative: The incision remains intact with no dehiscence. The erythema has resolved and there is no DC from the incision. There is brownish discoloration around the incision where there was previously erythema. The rash around the umbilicus is stable and there is no more flakey scales. Same with the patchy area on the R lateral calf. NO rash on the face. Psych affect normal Assessment & Plan Assessment/Plan (1) Debility: (2) Fall: QUALIFIERS: Encounter type: subsequent encounter Qualified Code(s): W19.XXXD - Unspecified fall, subsequent encounter (3) Closed fracture of right acetabulum: QUALIFIERS: Encounter type: subsequent encounter Sublocation of acetabulum: unspecified portion of acetabulum Fracture alignment: displaced (4) Fracture of right iliac wing: QUALIFIERS: Encounter type: subsequent encounter Fracture type: c losed (5) Paranoid schizophrenia: (6) Acute blood loss anemia: (7) Hyponatremia: (8) Psoriasis: (9) Hyperglycemia: (10) Epilepsy: QUALIFIERS: Epilepsy type: unspecified Intractability: not intractable Status epilepticus: without status epilepticus Qualified Code(s): G40.909 - Epilepsy, unspecified, not intractable, without status epilepticus (11) Cellulitis: QUALIFIERS: Site of cellulitis: trunk Site of cellulitis of trunk: abdominal wall Qualified Code(s): L03.311 - Cellulitis of abdominal wall PLAN: Plan 1. Continue therapy 2. No changes to the drug regimen today. 3. Waiting to hear from workman's comp whether he is being cut or he can continue to stay on rehab. [facility] called today and they are wondering when he is to be discharged from rehab so they can schedule an office follow up. We will contact them when we hear from insurance. Not safe to go home. is unable to care for him. He has poor safety awareness and poor memory. Has a difficult time maintaining TTWB on the RLE. He is also impulsive. Charges/Coding Visit Charges Inpatient E&M: 42870 Subs Hosp L1
[2024-11-01 17:43] VITALS: BP 133/56; PULSE 79; RESP 15; TEMP 36.3; O2SAT 95
[2024-11-01] MEDS: OLANZapine 2.5 MG Tablet PO (21:21)
[2024-11-01] MEDS: oxyCODONE 5 MG Tablet PO (21:25)
[2024-11-01 22:00] VITALS: RESP 16
[2024-11-02] MEDS: oxyCODONE 5 MG Tablet PO ×2 (04:50→20:26)
[2024-11-02] MEDS: Cephalexin 500 MG Capsule PO ×3 (04:50→20:27)
[2024-11-02] MEDS: carBAMazepine 200 MG Tablet PO ×3 (04:51→20:29)
[2024-11-02] MEDS: Enoxaparin 40 MG/0.4 ML Syringe SC (04:51)
[2024-11-02] MEDS: Nystatin Powder 15gm Bottle 1 APPLIC TOPICAL ×3 (04:55→20:28)
[2024-11-02] MEDS: Menthol/Lanolin/Calamine/Znox 113 GM Tube 1 APPLIC TOPICAL ×2 (04:55→20:28)
[2024-11-02 06:00] VITALS: BP 128/68; PULSE 68; RESP 16; TEMP 36.9; O2SAT 94
[2024-11-02] MEDS: Calcium Carbonate 500 MG Tablet PO ×2 (07:43→18:16)
[2024-11-02] MEDS: Hydrocortisone 2.5% Crm 1 APPLIC TOPICAL ×2 (07:43→20:27)
[2024-11-02] MEDS: Cholecalciferol (VIT D3) 25 MCG TABLET (1,000 UNITS) PO (07:44)
[2024-11-02 18:00] VITALS: BP 134/74; PULSE 73; RESP 16; TEMP 37.2; O2SAT 94
[2024-11-02] MEDS: Senna/Docusate Sodium 1 Tablet 2 TABLET PO (20:28)
[2024-11-02] MEDS: OLANZapine 2.5 MG Tablet PO (20:29)
[2024-11-02 22:00] VITALS: RESP 15; O2SAT 95
[2024-11-03] MEDS: Cephalexin 500 MG Capsule PO ×2 (05:30→14:16)
[2024-11-03] MEDS: Enoxaparin 40 MG/0.4 ML Syringe SC (05:30)
[2024-11-03] MEDS: carBAMazepine 200 MG Tablet PO ×3 (05:30→20:26)
[2024-11-03] MEDS: Menthol/Lanolin/Calamine/Znox 113 GM Tube 1 APPLIC TOPICAL ×2 (05:30→20:28)
[2024-11-03] MEDS: Nystatin Powder 15gm Bottle 1 APPLIC TOPICAL ×2 (05:31→20:27)
[2024-11-03 06:00] VITALS: BP 129/62; PULSE 71; RESP 18; TEMP 36.3; O2SAT 95
[2024-11-03] MEDS: oxyCODONE 5 MG Tablet PO ×2 (07:20→20:27)
[2024-11-03] MEDS: Calcium Carbonate 500 MG Tablet PO ×2 (07:58→16:33)
[2024-11-03] MEDS: Hydrocortisone 2.5% Crm 1 APPLIC TOPICAL ×2 (07:58→21:46)
[2024-11-03] MEDS: Cholecalciferol (VIT D3) 25 MCG TABLET (1,000 UNITS) PO (07:59)
[2024-11-03] MEDS: Senna/Docusate Sodium 1 Tablet 2 TABLET PO ×2 (07:59→20:25)
--- NOTE | 2024-11-03 14:19 | CASEMGMT ---
Addendum entered by Aggie Akhtar 11/03/24 16:04: SW left with to discuss DC plans. Original Note: Social Work Notified by Dr that after conversation with pt's ortho, if pt cannot maintain TTWB, pt will need to be NWB; regardless, WBS is not ready to be increased, and will need to be seen in the ortho office to make that determination after the time allows. IDT to set DC date given inability to progress with WBS. Recommending a SNF. - KIESHA phoned son to discuss above. Explained the goal is for worker's comp to continue covering the SNF stay, however, it may be difficult to find a SNF that accepts worker's comp. Son expressed understanding and in agreement. Son requested to provide information to pt's prior to this worker contacting her. SW agreed and will follow up later. Aggie Akhtar ASSISTANT STORE MANAGER OPERATIONS CAN FILLING ROOM SWEEPER
[2024-11-03 17:35] VITALS: BP 116/68; PULSE 73; RESP 16; TEMP 36.5
[2024-11-03] MEDS: OLANZapine 2.5 MG Tablet PO (20:26)
[2024-11-03 22:00] VITALS: PULSE 73; RESP 16; O2SAT 96
[2024-11-04] MEDS: Nystatin Powder 15gm Bottle 1 APPLIC TOPICAL ×2 (05:18→21:14)
[2024-11-04] MEDS: Enoxaparin 40 MG/0.4 ML Syringe SC (05:18)
[2024-11-04] MEDS: Menthol/Lanolin/Calamine/Znox 113 GM Tube 1 APPLIC TOPICAL ×2 (05:18→21:14)
[2024-11-04] MEDS: Acetaminophen 325 MG Tablet 650 MG PO (05:19)
[2024-11-04] MEDS: carBAMazepine 200 MG Tablet PO ×3 (05:19→21:14)
[2024-11-04 06:00] VITALS: BP 133/95; PULSE 75; RESP 15; TEMP 36.7; O2SAT 93
[2024-11-04] MEDS: Calcium Carbonate 500 MG Tablet PO ×2 (07:59→08:00)
[2024-11-04] MEDS: Cholecalciferol (VIT D3) 25 MCG TABLET (1,000 UNITS) PO (08:00)
[2024-11-04] MEDS: Hydrocortisone 2.5% Crm 1 APPLIC TOPICAL ×2 (08:00→21:13)
--- NOTE | 2024-11-04 08:22 | CASEMGMT ---
Social Work Received return call from . spoke with son and expressed understanding to the situation and plan for DC. SW offered to provide with list of SNFs, but denied stating she knows all of the facilities and only wants certain ones. prefers [facility]. SW agreed to refer and reiterated the carlie for accepting facility is likely to be the acceptance of a worker's comp. expressed understanding. appreciative. SW will continue to follow. Referrals sent via [facility]. Aggie Akhtar LOOM SETTER FOURDRINIER BRICK TOSSER
--- NOTE | 2024-11-04 10:30 | PN_ITS ---
Subjective Subjective Bill was seen on team rounds today. His Cielo participated by phone. All questions were answered to their satisfaction. Afebrile VSS - Maintaining appropriate oxygen saturation on RA Oral intake - FOOD good FLUIDS good Discussed with nursing - no problems that need addressed. Sleeping well at night, good appetite. Has been incontinent of both urine and stool the past 2 days. was not having incontinence of stool for the past week until the most recent BM. Not having diarrhea. Denies abd pain. Had been voiding in the urinal but, incontinent of urine 3// and 3. Reviewed the THERAPY notes Medication list reviewed. Oxycodone is 5 mg every 4 hours as needed. Has been taking 2 doses a day 1 in the AM prior to therapy and 1 at bedtime. Tells me that pain is well controlled and says he really does not have pain now. Denies CP, SOB, cough, sore throat, N/V/abd pain, dysuria and calf pain. Objective Data Objective Data Vital Signs: Vital Signs Temp Pulse Resp BP Pulse Ox O2 Del Method 98.1 F 75 15 133/95 H 93 Room Air 11/04/24 06:00 11/04/24 06:00 11/04/24 06:00 11/04/24 06:00 11/04/24 06:00 11/04/24 06:00 Oxygen Delivery Method Room Air Weight: 190 lb 4.143 oz Body Mass Index (BMI) 28.9 Intake & Output: Intake and Output for Last 24 Hours 11/02/24 11/03/24 11/04/24 23:59 23:59 23:59 Intake Total 940 / 1290 2300 / 2600 1290 / 1290 Output Total 1450 / 1800 2000 / 2480 1180 / 1180 Balance -510 / -510 300 / 120 110 / 110 Lab / Micro Data 11/05/24 05:33 11/05/24 05:33 Micro: Microbiology 10/21/24 09:00 Stool Stool Occult Blood (ANAID) - Final Physical Exam Const alert and no apparent distress General Appearance: cooperative HEENT moist oral mucous membranes HEENT Narrative: Not thrush. Denies mouth pain. Resp normal respiratory effort and clear to auscultation bilaterally Resp Narrative: No cough Cardio regular rate and regular rhythm Cardio Narrative: No ectopy GI normal to inspection, nondistended, normoactive bowel sounds, soft to palpation and non-tender Extremity Extremity Narrative: Mild swelling of the distal RLE/ankle. This is improving. No calf pain with compression. No redness of the distal RLE. Skin Wound Narrative: The incisions are intact with no dehiscence. There is no discharge from the incisions. Nazia-incisional erythema has resolved. Neuro Neuro Narrative: Thought processes are slow. Poor memory. Needs a lot of cuing. Psych affect normal Assessment & Plan Assessment/Plan (1) Debility: (2) Fall: QUALIFIERS: Encounter type: subsequent encounter Qualified Code(s): W19.XXXD - Unspecified fall, subsequent encounter (3) Closed fracture of right acetabulum: QUALIFIERS: Encounter type: subsequent encounter Sublocation of acetabulum: unspecified portion of acetabulum Fracture alignment: displaced (4) Fracture of right iliac wing: QUALIFIERS: Encounter type: subsequent encounter Fracture type: c losed (5) Paranoid schizophrenia: (6) Acute blood loss anemia: (7) Hyponatremia: (8) Psoriasis: (9) Hyperglycemia: (10) Epilepsy: QUALIFIERS: Epilepsy type: unspecified Intractability: not intractable Status epilepticus: without status epilepticus Qualified Code(s): G40.909 - Epilepsy, unspecified, not intractable, without status epilepticus (11) Cellulitis: QUALIFIERS: Site of cellulitis: trunk Site of cellulitis of trunk: abdominal wall Qualified Code(s): L03.311 - Cellulitis of abdominal wall PLAN: Plan 1. continue therapy 2. HH, BMP and MAG in the AM. 3. He must remain TTWB only until he is SEEN in the office by Ortho for 6 week check up.........if he is not able to maintain TTWB he is to be NWB on the RLE. He is mostly just hopping on the LLE with the FWW because he can not maintain TTWB on the R. Unable to progress in therapy due to weight bearing restrictions. He is really not able to remember what to do with wt bearing on the RLE. Will need to transition to SNF for continued therapy/strengthening until he is able to bear more weight on the RLE. 4. Check a few more postvoid residuals....pt unaware that he is urinating. Fecal incontinence is new - etiology? Charges/Coding Visit Charges Inpatient E&M: 63398 Subs Hosp L2
--- NOTE | 2024-11-04 13:10 | CASEMGMT ---
Social Work IDT met with patient then via conference call for Team meeting. Discussed patient's progress in PT/OT/SN. Confirmed worker's comp approved and the pt will transition to a SNF. SW updated that [facility] does not have a bed, W denied, but [facility] can accept. Inquired about FOC or offered to refer to other facilities. confirmed [place]. SW to coordinate and notify pt/ once a DC date is set. appreciative. SW updated [facility] to coordinate DC. Aggie Akhtar SOFTWARE APPLICATIONS DESIGNER BULLET MAKER
[2024-11-04 18:00] VITALS: BP 139/66; PULSE 75; RESP 16; TEMP 36.6; O2SAT 96
[2024-11-04] MEDS: OLANZapine 2.5 MG Tablet PO (21:13)
[2024-11-04] MEDS: Senna/Docusate Sodium 1 Tablet 2 TABLET PO (21:14)
[2024-11-04] MEDS: oxyCODONE 5 MG Tablet PO (21:18)
[2024-11-04 22:00] VITALS: PULSE 73; RESP 16; O2SAT 95
[2024-11-05] MEDS: Menthol/Lanolin/Calamine/Znox 113 GM Tube 1 APPLIC TOPICAL ×2 (05:46→21:16)
[2024-11-05] MEDS: carBAMazepine 200 MG Tablet PO ×3 (05:46→21:09)
[2024-11-05] MEDS: Nystatin Powder 15gm Bottle 1 APPLIC TOPICAL ×2 (05:46→21:15)
[2024-11-05] MEDS: Acetaminophen 325 MG Tablet 650 MG PO (05:46)
[2024-11-05] MEDS: Enoxaparin 40 MG/0.4 ML Syringe SC (05:46)
[2024-11-05 05:50] VITALS: BMI 28.3
[2024-11-05 05:55] LABS: Hemoglobin 10.5 g/dL (13.0-16.5)
[2024-11-05 05:59] VITALS: BP 141/72; PULSE 66; RESP 18; TEMP 36.5; O2SAT 92
[2024-11-05 06:36] LABS: Anion Gap 11 (5-15); BUN 13 mg/dL (4-19); BUN/Creat Ratio 18.6 RATIO (10-20); Calcium,Total 8.7 mg/dL (7.6-11.0); Carbon Dioxide 24.9 mmol/L (21.0-32.0); Chloride 86 mmol/L (98-108); EST Glomerular Filtration Rate 95 (>60); Glucose 96 mg/dL (70-99); Magnesium 1.9 mg/dL (1.5-2.2); Potassium 4.8 mmol/L (3.3-5.1); Sodium Level 122 mmol/L (133-145)
[2024-11-05] MEDS: Cholecalciferol (VIT D3) 25 MCG TABLET (1,000 UNITS) PO (08:18)
[2024-11-05] MEDS: Senna/Docusate Sodium 1 Tablet 2 TABLET PO ×2 (08:18→21:09)
[2024-11-05] MEDS: Calcium Carbonate 500 MG Tablet PO ×2 (08:19→17:20)
[2024-11-05] MEDS: Hydrocortisone 2.5% Crm 1 APPLIC TOPICAL ×2 (08:19→21:09)
[2024-11-05 08:30] VITALS: PULSE 79; RESP 18; O2SAT 94
--- NOTE | 2024-11-05 09:48 | PN_ITS ---
Subjective Subjective AF Vital signs are stable Maintaining appropriate oxygen saturation on room air. Oral fluid intake yesterday was 2890 cc and he had 2530 out. Overnight he was - 110. Second postvoid residual was 201 and he did not have to have a straight cath. All lab drawn this AM was personally reviewed. Hemoglobin has been improving and is 10.5 today, up from 8.4 at admission to rehab. Sodium was low at 122 and a repeat sodium level has been ordered. Potassium is 4.8 and the BUN is 13 with a creatinine of 0.7. Calcium is within normal limits and the magnesium is 1.9. No complaints today. Denies pain and also denies SOB, lightheadedness, calf pain and dysuria. Objective Data Objective Data Vital Signs: Vital Signs Temp Pulse Resp BP Pulse Ox O2 Del Method 97.7 F L 66 18 141/72 H 92 Room Air 11/05/24 05:59 11/05/24 05:59 11/05/24 05:59 11/05/24 05:59 11/05/24 05:59 11/05/24 05:59 Oxygen Delivery Method Room Air Weight: 186 lb 8.177 oz Body Mass Index (BMI) 28.3 Intake & Output: Intake and Output for Last 24 Hours 11/03/24 11/04/24 11/05/24 23:59 23:59 23:59 Intake Total 2300 / 2600 2890 / 2890 240 / 240 Output Total 2000 / 2480 2530 / 2530 350 / 350 Balance 300 / 120 360 / 360 -110 / -110 Lab / Micro Data 11/05/24 05:33 11/05/24 05:33 Labs: Laboratory Results - last 24 hr 11/05/24 05:33: Hgb 10.5 L, Hct 31.0 L, Sodium 122 L, Potassium 4.8, Chloride 86 L, Carbon Dioxide 24.9, Anion Gap 11, BUN 13, Creatinine 0.70, Estim Creat Clear Calc 83.20, Est GFR (MDRD) Non-Af 95, BUN/Creatinine Ratio 18.6, Glucose 96, Calcium 8.7, Magnesium 1.9 Micro: Microbiology 10/21/24 09:00 Stool Stool Occult Blood (ANAID) - Final Physical Exam Const Constitutional Narrative: Alert but, slow to respond to questions. NAD. Denies pain HEENT moist oral mucous membranes Resp clear to auscultation bilaterally Cardio regular rate and regular rhythm GI normal to inspection, nondistended, normoactive bowel sounds, soft to palpation and non-tender Extremity no calf tenderness Extremity Narrative: mild edema of the R ankle. Skin Wound Narrative: Psoriatic rash is well controlled. there is hyperpigmentation in the areas where the scaly rash was but, no scales any more, even with the down grade in the steroid potency. The incision is intact with no evidence of infection. 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 (8) Psoriasis: (9) Hyperglycemia: (10) Epilepsy: QUALIFIERS: Epilepsy type: unspecified Intractability: not intractable Status epilepticus: without status epilepticus Qualified Code(s): G40.909 - Epilepsy, unspecified, not intractable, without status epilepticus (11) Cellulitis: QUALIFIERS: Site of cellulitis: trunk Site of cellulitis of trunk: abdominal wall Qualified Code(s): L03.311 - Cellulitis of abdominal wall PLAN: Plan 1. Continue therapy 2. Change the hydrocortisone to as needed. 3. Check a urine sodium, urine osmolality and serum osmolality. Also check carbamazepine level. Carbamazepine can cause hyponatremia secondary to SIADH. The carbamazepine level at admission was therapeutic. 4. [place] fluid restriction....1000 cc daily 5. Await the results of the repeat sodium to confirm true hyponatremia. 6. I spoke to Sonia from Dr. Bairon Carlson's office. I confirmed with her that he is NWB on the RLE due to inability to maintain TTWB. He will be going to SNF since we are unable to advance therapy due to NWB status on the RLE. Needs a [address] Carlson to be seen in the office prior to any changes in WB status. Surgery was on 10/14/2024 so 6 weeks would put us at the end of October/first week of November. Charges/Coding Visit Charges Inpatient E&M: 94015 Subs Hosp L1
[2024-11-05 10:06] LABS: Sodium Level 121 mmol/L (133-145)
[2024-11-05 10:16] LABS: Bacteria 0 SEEN /hpf (None Seen); Mucous, Urine 0 SEEN /hpf (<or=2+)
[2024-11-05 10:29] LABS: Urine Sodium 33 mmol/L (Not Establ.)
[2024-11-05 10:34] LABS: Color, Urine Yellow (Yellow); Glucose, Dipstick Normal (Normal); Ketone-Dipstick Negative (Negative); Leukocyte Esterase-Dipstick Negative /ul (Negative); Nitrite-Dipstick Negative (Negative); Occult Blood-Urine 10 /ul (Negative); Protein-Dipstick 15 mg/dl (Negative); Specific Gravity, Urine 1.015 (1.002-1.030); Urine Bilirubin Dipstick Negative (Negative); Urine Clarity Clear (Clear); Urine Urobilinogen Normal (Normal); Urine pH 6.5 (5.0 - 8.0)
[2024-11-05 10:38] LABS: Osmolality, Serum 255 mOsm/KG (280-301)
[2024-11-05 10:51] LABS: Red Blood Cells-Urine 0-5 SEEN /hpf (0-5); Squamous Epithelial Cells - UA 0-5 SEEN /hpf (0-5); White Blood Cells 0-5 SEEN /hpf (0-5)
[2024-11-05] MEDS: Furosemide 20 MG Tablet PO ×2 (11:47→17:33)
[2024-11-05] MEDS: Sodium Chloride 1 GM Tablet PO ×2 (13:59→21:09)
[2024-11-05 15:20] LABS: Osmolality, Urine 360 mOsm/KG
[2024-11-05 15:32] LABS: Carbamazepine (Tegretol) 7.4 ug/mL (4.0-12.0)
--- NOTE | 2024-11-05 15:42 | NURSING ---
AT 10:15 PT PEED 200ML,BLADDER SCANNED FOR 426. PT FAILED 3RD BLADDER SCAN,PER PUT PERAZA IN. 16FR PERAZA PLACED,URINE FLOWING FREELY,STAT LOCK PLACED TO RT UPPER THIGH. PT TOLERATED WELL.
[2024-11-05] MEDS: oxyCODONE 5 MG Tablet PO (15:50)
[2024-11-05] MEDS: Tamsulosin HCl 0.4 MG Capsule PO (17:20)
[2024-11-05 17:49] VITALS: BP 133/65; PULSE 71; RESP 18; TEMP 36.9; O2SAT 96
[2024-11-05] MEDS: OLANZapine 2.5 MG Tablet PO (21:17)
[2024-11-05 22:00] VITALS: RESP 18
[2024-11-06] MEDS: oxyCODONE 5 MG Tablet PO (01:43)
[2024-11-06 04:50] LABS: Anion Gap 12 (5-15); BUN 13 mg/dL (4-19); BUN/Creat Ratio 18.6 RATIO (10-20); Calcium,Total 8.9 mg/dL (7.6-11.0); Carbon Dioxide 23.5 mmol/L (21.0-32.0); Chloride 90 mmol/L (98-108); Creatinine, Serum 0.69 mg/dL (0.70-1.20); EST Glomerular Filtration Rate 96 (>60); Glucose 102 mg/dL (70-99); Potassium 4.2 mmol/L (3.3-5.1); Sodium Level 125 mmol/L (133-145)
[2024-11-06] MEDS: Sodium Chloride 1 GM Tablet PO ×3 (04:59→21:07)
[2024-11-06] MEDS: carBAMazepine 200 MG Tablet PO ×3 (04:59→21:08)
[2024-11-06] MEDS: Enoxaparin 40 MG/0.4 ML Syringe SC (04:59)
[2024-11-06] MEDS: Menthol/Lanolin/Calamine/Znox 113 GM Tube 1 APPLIC TOPICAL ×2 (05:02→21:07)
[2024-11-06] MEDS: Nystatin Powder 15gm Bottle 1 APPLIC TOPICAL ×2 (05:03→21:07)
[2024-11-06 06:00] VITALS: BP 126/54; PULSE 70; RESP 16; TEMP 36.4; O2SAT 94
[2024-11-06] MEDS: Hydrocortisone 2.5% Crm 1 APPLIC TOPICAL ×2 (08:42→21:07)
[2024-11-06] MEDS: Furosemide 20 MG Tablet PO (08:42)
[2024-11-06] MEDS: Cholecalciferol (VIT D3) 25 MCG TABLET (1,000 UNITS) PO (08:42)
[2024-11-06] MEDS: Calcium Carbonate 500 MG Tablet PO ×2 (08:42→16:33)
[2024-11-06] MEDS: Senna/Docusate Sodium 1 Tablet 2 TABLET PO ×2 (08:42→21:07)
--- NOTE | 2024-11-06 11:07 | PCM.PROGNOTE ---
Subjective Subjective Afebrile VSS - Maintaining appropriate oxygen saturation on RA Oral intake - FOOD good FLUIDS he is now on fluid restriction to 1000 cc a day for SIADH with hyponatremia. Has a Mcginnis for urine retention and he was started on Flomax on 11/02/24. Discussed with nursing - no problems that need addressed Reviewed the THERAPY notes Medication list reviewed. UA yesterday showed 0-5 white blood cells per high-power field and 0-5 RBCs. There was no bacteria. The urine osmolality is less than maximally dilute at 360 and urine sodium was 33. Serum osmolality was low at 255 and this is consistent with SIADH. Carbamazepine level was therapeutic at 7.4. All lab drawn today was personally reviewed. With the instituted changes to fluid restriction and medication the sodium is now up to 125. Potassium is 4.2. BUN is stable at 13 and the creatinine is stable at 0.69. Occasionally having pain in the R hip but, the pain medication is effective. Sleeping well at night. Denies lightheadedness, shortness of breath, palpitations, chest pain, nausea/vomiting/abdominal pain, calf pain. Objective Data Objective Data Vital Signs: Vital Signs Temp Pulse Resp BP Pulse Ox O2 Del Method 97.5 F L 70 16 126/54 H 94 Room Air 11/06/24 06:00 11/06/24 06:00 11/06/24 06:00 11/06/24 06:00 11/06/24 06:00 11/06/24 10:00 Oxygen Delivery Method Room Air Weight: 186 lb 8.177 oz Body Mass Index (BMI) 28.3 Intake & Output: Intake and Output for Last 24 Hours 11/04/24 11/05/24 11/06/24 23:59 23:59 23:59 Intake Total 2890 / 2890 660 / 660 260 / 260 Output Total 2530 / 2530 2850 / 2850 600 / 600 Balance 360 / 360 -2190 / -2190 -340 / -340 Lab / Micro Data 11/05/24 05:33 11/06/24 04:19 Labs: Laboratory Results - last 24 hr 11/05/24 09:37: Carbamazepine 7.4 11/05/24 10:00: Urine Osmolality 360 11/06/24 04:19: Sodium 125 L, Potassium 4.2, Chloride 90 L, Carbon Dioxide 23.5, Anion Gap 12, BUN 13, Creatinine 0.69 L, Estim Creat Clear Calc 83.20, Est GFR (MDRD) Non-Af 96, BUN/Creatinine Ratio 18.6, Glucose 102 H, Calcium 8.9 Micro: Microbiology 10/21/24 09:00 Stool Stool Occult Blood (ANAID) - Final Physical Exam Const Constitutional Narrative: Much more alert today and he tells me that he is feeling better. He is much quicker responding to my questions today. General Appearance: cooperative Resp clear to auscultation bilaterally Cardio regular rate and regular rhythm GI normal to inspection, nondistended, normoactive bowel sounds, soft to palpation and non-tender Extremity Extremity Narrative: edema of the R ankle. No edema in the LLE. NO calf pain. 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 (8) Psoriasis: (9) Hyperglycemia: (10) Epilepsy: QUALIFIERS: Epilepsy type: unspecified Intractability: not intractable Status epilepticus: without status epilepticus Qualified Code(s): G40.909 - Epilepsy, unspecified, not intractable, without status epilepticus (11) Acute metabolic encephalopathy: PLAN: Plan 1. Continue therapy 2. Continue salt tablets 1 p.o. 3 times daily and Lasix 20 mg once daily until sodium is 130 or greater. Continue fluid restriction. 3. Recheck a BMP on Friday Charges/Coding Visit Charges Inpatient E&M: 53192 [facility] Hosp L1
[2024-11-06] MEDS: Tamsulosin HCl 0.4 MG Capsule PO (16:33)
[2024-11-06 17:34] VITALS: BP 114/58; PULSE 78; RESP 16; TEMP 36.4; O2SAT 963
[2024-11-06] MEDS: OLANZapine 2.5 MG Tablet PO (21:08)
[2024-11-07] MEDS: oxyCODONE 5 MG Tablet PO (01:00)
[2024-11-07 05:08] VITALS: BP 124/67; PULSE 74; RESP 16; TEMP 36.6; O2SAT 96
[2024-11-07] MEDS: Nystatin Powder 15gm Bottle 1 APPLIC TOPICAL ×2 (05:10→20:49)
[2024-11-07] MEDS: Sodium Chloride 1 GM Tablet PO ×3 (05:10→20:48)
[2024-11-07] MEDS: Menthol/Lanolin/Calamine/Znox 113 GM Tube 1 APPLIC TOPICAL ×2 (05:10→20:48)
[2024-11-07] MEDS: carBAMazepine 200 MG Tablet PO ×3 (05:10→20:47)
[2024-11-07] MEDS: Enoxaparin 40 MG/0.4 ML Syringe SC (05:10)
[2024-11-07] MEDS: Calcium Carbonate 500 MG Tablet PO ×2 (08:01→17:12)
[2024-11-07] MEDS: Furosemide 20 MG Tablet PO (08:01)
[2024-11-07] MEDS: Senna/Docusate Sodium 1 Tablet 2 TABLET PO ×2 (08:01→20:47)
[2024-11-07] MEDS: Hydrocortisone 2.5% Crm 1 APPLIC TOPICAL ×2 (08:01→20:49)
[2024-11-07] MEDS: Cholecalciferol (VIT D3) 25 MCG TABLET (1,000 UNITS) PO (08:01)
[2024-11-07] MEDS: Tamsulosin HCl 0.4 MG Capsule PO (17:12)
[2024-11-07 17:38] VITALS: BP 123/63; PULSE 87; RESP 16; TEMP 36.7; O2SAT 96
[2024-11-07] MEDS: OLANZapine 2.5 MG Tablet PO (22:12)
--- NOTE | 2024-11-07 22:29 | NURSING ---
Went into pt room to turn and noticed gonzales was out, laying on the bed,balloon no longer inflated. Pt denies knowing hoiw or when it came out. New gonzales inserted using sterile technique, clear yellow urine returned
[2024-11-08] MEDS: Enoxaparin 40 MG/0.4 ML Syringe SC (05:32)
[2024-11-08] MEDS: carBAMazepine 200 MG Tablet PO ×3 (05:32→22:13)
[2024-11-08] MEDS: Sodium Chloride 1 GM Tablet PO ×3 (05:32→22:13)
[2024-11-08] MEDS: Nystatin Powder 15gm Bottle 1 APPLIC TOPICAL ×2 (05:33→22:14)
[2024-11-08] MEDS: oxyCODONE 5 MG Tablet PO ×2 (05:38→22:21)
[2024-11-08] MEDS: Menthol/Lanolin/Calamine/Znox 113 GM Tube 1 APPLIC TOPICAL ×2 (05:42→22:14)
[2024-11-08 05:54] VITALS: BP 109/60; PULSE 85; RESP 16; TEMP 36.4; O2SAT 92
[2024-11-08] MEDS: Hydrocortisone 2.5% Crm 1 APPLIC TOPICAL ×2 (08:03→22:35)
[2024-11-08] MEDS: Cholecalciferol (VIT D3) 25 MCG TABLET (1,000 UNITS) PO (08:04)
[2024-11-08] MEDS: Calcium Carbonate 500 MG Tablet PO ×2 (08:04→16:53)
[2024-11-08] MEDS: Senna/Docusate Sodium 1 Tablet 2 TABLET PO ×2 (08:04→22:13)
[2024-11-08] MEDS: Furosemide 20 MG Tablet PO (08:04)
--- NOTE | 2024-11-08 08:40 | PN_ITS ---
Subjective Subjective Afebrile VSS - Maintaining appropriate oxygen saturation on RA Oral intake - FOOD good FLUIDS - remains on fluid restriction for SIADH. took 960 yesterday. Discussed with nursing - no problems that need addressed Reviewed the THERAPY notes Medication list reviewed. Only taking oxycodone once daily in the AM. He tells me that he feels more alert and less foggy. He is sleeping well at night and has a good appetite. Denies WHEELER, CP, SOB, N/V/abd pain. Sodium today is 132 with a potassium of 4.4. The BUN is 15 with a stable creatinine at 0.69. Objective Data Objective Data Vital Signs: Vital Signs Temp Pulse Resp BP Pulse Ox O2 Del Method 97.6 F L 85 16 109/60 92 Room Air 11/08/24 05:54 11/08/24 05:54 11/08/24 05:54 11/08/24 05:54 11/08/24 05:54 11/08/24 05:54 Oxygen Delivery Method Room Air Weight: 186 lb 8.177 oz Body Mass Index (BMI) 28.3 Intake & Output: Intake and Output for Last 24 Hours 11/06/24 11/08/24 11/08/24 23:59 00:59 23:59 Intake Total 860 / 910 960 / 960 0 / 0 Output Total 1150 / 1500 1999 / 5 225 / 225 Balance -290 / -590 -1040 / -1165 -225 / -225 Lab / Micro Data 11/05/24 05:33 11/08/24 06:10 Micro: Microbiology 10/21/24 09:00 Stool Stool Occult Blood (ANAID) - Final Physical Exam Const Constitutional Narrative: Much more alert today and he tells me that he is feeling better. Seems to be back to his baseline mentally. General Appearance: cooperative Resp clear to auscultation bilaterally Resp Narrative: No conversational dyspnea Effort and Inspection: Negative for tachypneic Cardio regular rate and regular rhythm GI normal to inspection, nondistended, normoactive bowel sounds, soft to palpation and non-tender Extremity Extremity Narrative: edema of the R ankle. No edema in the LLE. NO calf pain. General Extremity: edema Skin Wound Narrative: The incision is intact with no dehiscence, no discharge and no carissa-incisional erythema. There is no tenderness to palpation around the incision. 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 (8) Psoriasis: (9) Hyperglycemia: (10) Epilepsy: QUALIFIERS: Epilepsy type: unspecified Intractability: not intractable Status epilepticus: without status epilepticus Qualified Code(s): G40.909 - Epilepsy, unspecified, not intractable, without status epilepticus (11) Acute metabolic encephalopathy: PLAN: Resolved with improvement in the serum sodium PLAN: Plan 1. Continue therapy 2. Stop Lasix after today's dose 3. Continue salt tablets 3 times daily with meals. 4. Recheck a BMP Friday or . 5. COntinue fluid restriction........may increase to 1200 cc/day if sodium stays above 130. Charges/Coding Visit Charges Inpatient E&M: [address] [facility] H[facility] L1
[2024-11-08 08:48] LABS: Anion Gap 13 (5-15); BUN 15 mg/dL (4-19); BUN/Creat Ratio 21.9 RATIO (10-20); Calcium,Total 7.9 mg/dL (7.6-11.0); Carbon Dioxide 23.3 mmol/L (21.0-32.0); Chloride 96 mmol/L (98-108); Creatinine, Serum 0.69 mg/dL (0.70-1.20); EST Glomerular Filtration Rate 96 (>60); Glucose 104 mg/dL (70-99); Potassium 4.4 mmol/L (3.3-5.1); Sodium Level 132 mmol/L (133-145)
--- NOTE | 2024-11-08 09:09 | CASEMGMT ---
Social Work The C-9 was faxed approx. [phone] 11/05 to [facility]. At this time, no response has been provided for approval/denial to SNF. KIESHA updated [facility] via [employer]. Will continue to follow. Aggie Akhtar DECORATING AND ASSEMBLY SUPERVISOR [employer]SEMBLER [employer]
[2024-11-08] MEDS: Tamsulosin HCl 0.4 MG Capsule PO (16:53)
[2024-11-08 18:00] VITALS: BP 100/48; PULSE 100; RESP 16; TEMP 35.9; O2SAT 98
[2024-11-08 22:00] VITALS: PULSE 100; O2SAT 98
[2024-11-08] MEDS: OLANZapine 2.5 MG Tablet PO (22:13)
[2024-11-08] MEDS: Acetaminophen 325 MG Tablet 650 MG PO (22:21)
[2024-11-09] MEDS: Nystatin Powder 15gm Bottle 1 APPLIC TOPICAL ×2 (05:01→21:14)
[2024-11-09] MEDS: Enoxaparin 40 MG/0.4 ML Syringe SC (05:01)
[2024-11-09] MEDS: carBAMazepine 200 MG Tablet PO ×3 (05:02→21:14)
[2024-11-09] MEDS: Menthol/Lanolin/Calamine/Znox 113 GM Tube 1 APPLIC TOPICAL ×2 (05:02→21:13)
[2024-11-09] MEDS: Sodium Chloride 1 GM Tablet PO ×3 (05:02→21:14)
[2024-11-09 06:00] VITALS: BP 124/69; PULSE 77; RESP 16; TEMP 36.9; O2SAT 97
[2024-11-09] MEDS: Calcium Carbonate 500 MG Tablet PO ×2 (08:31→16:50)
[2024-11-09] MEDS: Senna/Docusate Sodium 1 Tablet 2 TABLET PO ×2 (08:31→21:14)
[2024-11-09] MEDS: Cholecalciferol (VIT D3) 25 MCG TABLET (1,000 UNITS) PO (08:32)
--- NOTE | 2024-11-09 10:12 | CASEMGMT ---
Social Work SW received updated from Blaire Loja CM through [employer] that they are waiting to hear from [facility] on negotiating rates for pt's admission, though, have not received return call. If [facility] delays, C-9 will be denied. KIESHA phoned Blake at [facility] to update on above. Blake stated he spoke with Blaire yesterday, but the CAR PAINTER needs to negotiate rate and will be contacting Blaire today. However, understands the urgency and will notify CAR PAINTER. KIESHA appreciative and will continue to follow. - KIESHA phoned pt's to update on negotiation and waiting on approval/denial of C-9. Once received, pt will DC. appreciative and will await outcome. Aggie Akhtar BUSINESS ADMINISTRATION PROFESSOR UNDERWRITER MORTGAGE LOAN
--- NOTE | 2024-11-09 11:23 | PN_ITS ---
Subjective Subjective Afebrile VSS - Maintaining appropriate oxygen saturation on RA Oral intake - FOOD good FLUIDS good Discussed with nursing - no problems that need addressed Reviewed the THERAPY notes Medication list reviewed. Reji denies chest pain, shortness of breath, palpitations, calf tenderness. He has no complaints today. Objective Data Objective Data Vital Signs: Vital Signs Temp Pulse Resp BP Pulse Ox O2 Del Method 98.5 F 77 16 124/69 H 97 Room Air 11/09/24 06:00 11/09/24 06:00 11/09/24 06:00 11/09/24 06:00 11/09/24 06:00 11/09/24 06:00 Oxygen Delivery Method Room Air Weight: 186 lb 8.177 oz Body Mass Index (BMI) 28.3 Intake & Output: Intake and Output for Last 24 Hours 11/08/24 11/08/24 11/09/24 00:59 23:59 23:59 Intake Total 960 / 960 230 / 230 60 / 60 Output Total 1999 / 5 875 / 875 450 / 450 Balance -1040 / -1165 -645 / -645 -390 / -390 Lab / Micro Data 11/05/24 05:33 11/10/24 07:42 Micro: Microbiology 10/21/24 09:00 Stool Stool Occult Blood (ANAID) - Final Physical Exam Const alert Constitutional Narrative: pleasant and cooperative Resp clear to auscultation bilaterally Resp Narrative: No conversational dyspnea Effort and Inspection: Negative for tachypneic Cardio regular rate and regular rhythm GI normal to inspection, nondistended, normoactive bowel sounds, soft to palpation and non-tender Extremity Extremity Narrative: edema of the R ankle. No edema in the LLE. NO calf pain. General Extremity: edema Skin Wound Narrative: The incision is intact with no dehiscence, no discharge and no carissa-incisional erythema. There is no tenderness to palpation around the incision. Assessment & Plan Assessment/Plan (1) Debility: (2) Fall: QUALIFIERS: Encounter type: subsequent encounter Qualified Code(s): W19.XXXD - Unspecified fall, subsequent encounter (3) Closed fracture of right acetabulum: QUALIFIERS: Encounter type: subsequent encounter Sublocation of acetabulum: unspecified portion of acetabulum Fracture alignment: displaced (4) Fracture of right iliac wing: QUALIFIERS: Encounter type: subsequent encounter Fracture type: c losed (5) History of open reduction and internal fixation (ORIF) procedure: PLAN: Needs a 6 week post op follow up appt with Dr. Bairon Carlson. Surgery was 10/14/24. (6) Acute blood loss anemia: PLAN: HGB at [place] is up to 10.5 from 8.8 on 10/26/24. (7) Hyponatremia: PLAN: Low sodium is due to SIADH. Sodium at [place] is 137. He was treated with fluid restriction, Lasix and salt tabs. Will continue fluid restriction at discharge but increase to 1400 cc daily. Lasix was discontinued 2 days prior to discharge. He will continue salt tablets 1 g p.o. 3 times daily with meals. Recheck BMP in 1 week. (8) SIADH (syndrome of inappropriate ADH production): (9) Acute metabolic encephalopathy: PLAN: Secondary to severe hyponatremia with a sodium of 122. Encephalopathy resolved with treatment of hyponatremia. He is at his baseline mentally at [place] from rehab. (10) Paranoid schizophrenia: PLAN: Stable on Olanzapine 2.5 mg at . Olanzapine can cause osteopenia. Would obtain a DEXA to assess bone mineral density in the near future. Continue vitamin D and calcium supplements at [place]. (11) Psoriasis: PLAN: Treated with clobetasol with excellent improvement. Was transitioned to a less potent steroid (hydrocortisone) and the rash remained stable. Hydrocortisone will continue at [place] but, it was made PRN recurrence of rash. The rash was on the face, the abdomen, around the umbilicus and on the R lateral calf. (12) Hyperglycemia: PLAN: Hemoglobin A1c is 5.6. Mild hyperglycemia is more likely than not secondary to stress. (13) Epilepsy: QUALIFIERS: Epilepsy type: unspecified Intractability: not intractable Status epilepticus: without status epilepticus Qualified Code(s): G40.909 - Epilepsy, unspecified, not intractable, without status epilepticus PLAN: No seizures for many years. Continue Tegretol. Level was checked twice on rehab and it is therapeutic. PLAN: Plan 1. Continue therapy 2. awaiting transfer to SNF when he is accepted. 3. Needs follow up appt with ortho 6 weeks post surgery to determine if WB status can be advanced Charges/Coding Visit Charges Inpatient E&M: 22850 [facility] Hosp L1
[2024-11-09] MEDS: Tamsulosin HCl 0.4 MG Capsule PO (16:50)
--- NOTE | 2024-11-09 17:22 | PCM.TXEXTCAR ---
Diet Diet Order/Speech Therapy: 10/19/24 14:56 Diet: Regular - General Fluid restriction:: 1500 mL Diet Comments: Fluid Restriction 1400mL On the day of discharge the fluid restriction was increased to 1400 cc/day. Will continue salt tabs. Routine Orders/Code Status Enema Type: Fleetz Enema Frequency: Daily PRN Suppository Type: Dulcolax 10mg Suppository Frequency: Daily PRN Routine Lab Work: - (BMP, HH and MAG in 1 week. ) Code Status: Full Code DC O2, CPAP, BIPAP needs Home O2 Discharge instructions: No Wound(s) Surigcal incisons: Wound Type: Surgical Incision Therapies Weight Bearing: Toe-touch weight bearing (TTWB only on the R leg.......he is usually not able to maintain TTWB and if this is the case he should be NWB on the RLE. Orthos will reassess wt bearing status at his 6 week post op appt. ) Extremity Affected:: Right Lower (HAS PERSISTENT MILD R ANKLE EDEMA) Physical Therapy: Eval and Treat Occupational Therapy: Eval and Treat Problem/Diagnosis (1) Debility: Status: Acute Code(s): R53.81 - Other malaise (2) Fall: Status: Inactive Code(s): W19.XXXA - Unspecified fall, initial encounter (3) Closed fracture of right acetabulum: Status: Inactive Code(s): S32.401A - Unspecified fracture of right acetabulum, initial encounter for closed fracture (4) Fracture of right iliac wing: Status: Inactive Code(s): S32.301A - Unspecified fracture of right ilium, initial encounter for closed fracture Comment: Comminuted and extends into the right acetabulum (5) History of open reduction and internal fixation (ORIF) procedure: Status: Acute Code(s): Z98.890 - Other specified postprocedural states Plan: Needs a 6 week post op follow up appt with Dr. Bairon Carlson. Surgery was 10/14/24. Comment: 10/14/2024 (6) Acute blood loss anemia: Status: Acute Code(s): D62 - Acute posthemorrhagic anemia Plan: HGB at [place] is up to 10.5 from 8.8 on 10/26/24. (7) Hyponatremia: Status: Resolved Code(s): E87.1 - Hypo-osmolality and hyponatremia Plan: Low sodium is due to SIADH. Sodium at [place] is 137. He was treated with fluid restriction, Lasix and salt tabs. Will continue fluid restriction at discharge but increase to 1400 cc daily. Lasix was discontinued 2 days prior to discharge. He will continue salt tablets 1 g p.o. 3 times daily with meals. Recheck BMP in 1 week. (8) SIADH (syndrome of inappropriate ADH production): Status: Acute Code(s): E22.2 - Syndrome of inappropriate secretion of antidiuretic hormone (9) Acute metabolic encephalopathy: Status: Resolved Code(s): G93.41 - Metabolic encephalopathy Plan: Secondary to severe hyponatremia with a sodium of 122. Encephalopathy resolved with treatment of hyponatremia. He is at his baseline mentally at [place] from rehab. Comment: due to hyponatremia (10) Paranoid schizophrenia: Status: Chronic Code(s): F20.0 - Paranoid schizophrenia Plan: Stable on Olanzapine 2.5 mg at . Olanzapine can cause osteopenia. Would obtain a DEXA to assess bone mineral density in the near future. Continue vitamin D and calcium supplements at [place]. (11) Psoriasis: Status: Chronic Code(s): L40.9 - Psoriasis, unspecified Plan: Treated with clobetasol with excellent improvement. Was transitioned to a less potent steroid (hydrocortisone) and the rash remained stable. Hydrocortisone will continue at [place] but, it was made PRN recurrence of rash. The rash was on the face, the abdomen, around the umbilicus and on the R lateral calf. (12) Hyperglycemia: Status: Acute Code(s): R73.9 - Hyperglycemia, unspecified Plan: Hemoglobin A1c is 5.6. Mild hyperglycemia is more likely than not secondary to stress. (13) Epilepsy: Status: Chronic Code(s): G40.909 - Epilepsy, unspecified, not intractable, without status epilepticus Plan: No seizures for many years. Continue Tegretol. Level was checked twice on rehab and it is therapeutic. Plan 1. Transfer to [facility] Allergies/Procedures Done in Hospital Allergies No Known Allergies Allergy (Verified 10/13/24 07:00) Procedures: None Type of Care/Length of Stay Estimated LOS: Convalescent Care Less Than 30 days Type of Care Needed: Skilled Rehab Potential: Good Prognosis: Good Additional Orders/Day of Discharge H&P will serve as current which was dated: 10/19/24 Day of Discharge: 11/11/24 Dietary and Speech Recommendations Dietitian Recommendations/Changes: Continue regular diet. Consult RD if changes occur in nutritional status. Follow Up Care Please follow up with your Primary Care Physician in: Dr. Bebeto Holcomb - 7-14 days post DC from rehab. Please Follow Up With: Dr. Bairon Carlson When: 6 weeks from the date of surgery - surgery was 10/14/24. Discharge Plan Admission Admit Date/Time: 10/19/24 14:22 Primary Reason for Your Visit: Debility due to R hip fx/ORIF Attending Provider: Marlyn Gutierrez Primary Care Provider: Bebeto Holcomb Instructions Additional Instructions / Restrictions: 1. Post void residuals on Flomax are all less than 200. 2. Has been taking Oxycodone 1-2 times a day, usually in the AM and at bedtime. 3. He is on 1,000 cc/day fluid restriction for hyponatremia due to SIADH. 4. If he is unable to maintain TTWB on the R leg then he should be NWB on the R leg. He usually hops on the left leg using a walker. Discharge Orders/Prescriptions Prescriptions: New bisacodyl 10 mg Suppository 10 mg MI X1 PRN (Reason: Constipation) Qty: 0 0RF calcium carbonate 200 mg calcium (500 mg) Tablet,Chewable 500 mg PO BIDCM Qty: 0 0RF hydrocortisone 2.5 % Cream 1 applic topical BID PRN (Reason: Erythema rash with scales) Qty: 0 0RF Protocol: *Topical Application Instructions APPLICATION INSTRUCTIONS: Apply to the rash on on the right side of the abd, the carissa-umbilical rash and the rash on the R lateral calf. Do not apply to the face. Rx Instructions: Apply to rash due to psoriasis enoxaparin 40 mg/0.4 mL Syringe 40 mg subcut DAILY@0600 Qty: 1 0RF Rx Instructions: Continue until he is weight bearing on the RLE cholecalciferol (vitamin D3) 25 mcg (1,000 unit) Tablet 25 mcg PO DAILY Qty: 0 0RF magnesium hydroxide 400 mg/5 mL Suspension 30 ml PO X1 PRN (Reason: Constipation) Qty: 0 0RF oxycodone 5 mg Tablet 5 mg PO Q4H PRN (Reason: pain (scale score 4-10)) 7 Days Qty: 14 0RF sennosides-docusate sodium [Stimulant Laxative Plus] 8.6-50 mg Tablet 2 tab PO BID Qty: 1 0RF tamsulosin 0.4 mg Capsule 0.4 mg PO DAILY@1730 Qty: 1 0RF sodium chloride 1,000 mg Tablet,Soluble 1,000 mg PO TID Qty: 0 0RF Continued multivitamin Tablet 1 tab PO DAILY carbamazepine 200 MG tablet 200 mg PO TID Qty: 30 0RF acetaminophen [Tylenol] 325 mg tablet 650 mg PO Q4H PRN (Reason: pain) olanzapine 2.5 mg tablet 2.5 mg PO DAILY Discontinued calcium-vitamin D3-vitamin K 500-100-40 mg-unit-mcg tablet,chewable 1 tab PO DAILY oxycodone 5 mg capsule 5 mg PO Q4H PRN (Reason: pain (scale score 4-10)) Referrals / Follow Up: Xray [Other] - 11/25/24 (AP & Jud[facility] Pelvis Xray for post of F/U Ordered by Dr Bairon Carlson-[facility], [facility] [address], [place]. Send CD ) Bairon Carlson MD [Non-Staff] - Bebeto Holcomb MD [Primary Care Provider] - Disposition Disposition (needs filled in before D/C Order can be placed): NonSkilled NH/Intermed Care (2) Fall Qualifiers: Encounter type: subsequent encounter Qualified Code(s): W19.XXXD - Unspecified fall, subsequent encounter (3) Closed fracture of right acetabulum Qualifiers: Encounter type: subsequent encounter Fracture alignment: displaced Sublocation of acetabulum: unspecified portion of acetabulum (4) Fracture of right iliac wing Qualifiers: Encounter type: subsequent encounter Fracture type: closed (13) Epilepsy Qualifiers: Epilepsy type: unspecified Intractability: not intractable Status epilepticus: without status epilepticus Qualified Code(s): G40.909 - Epilepsy, unspecified, not intractable, without status epilepticus
[2024-11-09 18:00] VITALS: BP 134/62; PULSE 76; RESP 16; TEMP 36.9; O2SAT 95
[2024-11-09 20:30] VITALS: PULSE 66; RESP 16; O2SAT 95
[2024-11-09] MEDS: Hydrocortisone 2.5% Crm 1 APPLIC TOPICAL (21:14)
[2024-11-09] MEDS: OLANZapine 2.5 MG Tablet PO (21:14)
[2024-11-09] MEDS: Acetaminophen 325 MG Tablet 650 MG PO (21:17)
[2024-11-09] MEDS: oxyCODONE 5 MG Tablet PO (21:18)
[2024-11-10] MEDS: Nystatin Powder 15gm Bottle 1 APPLIC TOPICAL ×2 (04:59→21:03)
[2024-11-10] MEDS: Menthol/Lanolin/Calamine/Znox 113 GM Tube 1 APPLIC TOPICAL ×2 (04:59→21:03)
[2024-11-10] MEDS: Sodium Chloride 1 GM Tablet PO ×3 (05:00→21:02)
[2024-11-10] MEDS: carBAMazepine 200 MG Tablet PO ×3 (05:00→21:02)
[2024-11-10] MEDS: Enoxaparin 40 MG/0.4 ML Syringe SC (05:00)
[2024-11-10 06:00] VITALS: BP 133/64; PULSE 77; RESP 15; TEMP 36.6; O2SAT 95
[2024-11-10] MEDS: Senna/Docusate Sodium 1 Tablet 2 TABLET PO ×2 (08:14→21:03)
[2024-11-10] MEDS: Cholecalciferol (VIT D3) 25 MCG TABLET (1,000 UNITS) PO (08:14)
[2024-11-10] MEDS: Calcium Carbonate 500 MG Tablet PO ×2 (08:14→17:10)
[2024-11-10 08:49] LABS: Anion Gap 12 (5-15); BUN 18 mg/dL (4-19); BUN/Creat Ratio 21.5 RATIO (10-20); Calcium,Total 9.3 mg/dL (7.6-11.0); Carbon Dioxide 25.4 mmol/L (21.0-32.0); Chloride 100 mmol/L (98-108); Creatinine, Serum 0.83 mg/dL (0.70-1.20); EST Glomerular Filtration Rate 91 (>60); Estimated Creatinine Clearance 80.19 ml/min (50-250); Glucose 102 mg/dL (70-99); Potassium 4.8 mmol/L (3.3-5.1); Sodium Level 137 mmol/L (133-145)
--- NOTE | 2024-11-10 14:19 | CASEMGMT ---
Addendum entered by Aggie Akhtar 11/11/24 09:14: 7000 completed. DC paperwork sent to [facility] Original Note: Social Work Received C-9 approval for [facility] and cot transport one-way. SW updated [facility] and they can accept 11/11. KIESHA spoke with pt and phoned to update. Both appreciative of coordination. 7000 started. Scheduled cot transport through [facility] for 1300. Plan: JUAN 11/11, [facility] intermediate Aggie Akhtar BULK PIGMENT REDUCER BUNG REMOVER
[2024-11-10] MEDS: Tamsulosin HCl 0.4 MG Capsule PO (17:11)
[2024-11-10 18:00] VITALS: BP 136/66; PULSE 84; RESP 16; TEMP 36.5; O2SAT 95
[2024-11-10] MEDS: OLANZapine 2.5 MG Tablet PO (21:02)
[2024-11-10] MEDS: oxyCODONE 5 MG Tablet PO (21:03)
[2024-11-11 06:00] VITALS: BP 133/62; PULSE 79; RESP 17; TEMP 36.6; O2SAT 94
[2024-11-11] MEDS: Sodium Chloride 1 GM Tablet PO (06:12)
[2024-11-11] MEDS: Menthol/Lanolin/Calamine/Znox 113 GM Tube 1 APPLIC TOPICAL (06:12)
[2024-11-11] MEDS: Enoxaparin 40 MG/0.4 ML Syringe SC (06:12)
[2024-11-11] MEDS: Nystatin Powder 15gm Bottle 1 APPLIC TOPICAL (06:12)
[2024-11-11] MEDS: carBAMazepine 200 MG Tablet PO (06:13)
--- NOTE | 2024-11-11 08:00 | PCM.DC.SUM ---
Providers Date of Admission: 10/19/24 Date of Discharge: 11/11/24 Primary Care Physician: Dr. Bebeto Holcomb MD none Reason For Visit: RT HIP ORIF Diagnosis Discharge Diagnosis (1) Debility: Status: Acute Code(s): R53.81 - Other malaise (2) Fall: Status: Inactive Code(s): W19.XXXA - Unspecified fall, initial encounter Qualifiers: Encounter type: subsequent encounter Qualified Code(s): W19.XXXD - Unspecified fall, subsequent encounter (3) Closed fracture of right acetabulum: Status: Inactive Code(s): S32.401A - Unspecified fracture of right acetabulum, initial encounter for closed fracture Qualifiers: Encounter type: subsequent encounter Fracture alignment: displaced Sublocation of acetabulum: unspecified portion of acetabulum (4) Fracture of right iliac wing: Status: Inactive Code(s): S32.301A - Unspecified fracture of right ilium, initial encounter for closed fracture Qualifiers: Encounter type: subsequent encounter Fracture type: closed (5) History of open reduction and internal fixation (ORIF) procedure: Status: Acute Code(s): Z98.890 - Other specified postprocedural states Plan: Needs a 6 week post op follow up appt with Dr. Bairon Carlson. Surgery was 10/14/24. (6) Acute blood loss anemia: Status: Acute Code(s): D62 - Acute posthemorrhagic anemia Plan: HGB at DC is up to 10.5 from 8.8 on 10/26/24. (7) Hyponatremia: Status: Resolved Code(s): E87.1 - Hypo-osmolality and hyponatremia Plan: Low sodium is due to SIADH. Sodium at DC is 137. He was treated with fluid restriction, Lasix and salt tabs. Will continue fluid restriction at discharge but increase to 1400 cc daily. Lasix was discontinued 2 days prior to discharge. He will continue salt tablets 1 g p.o. 3 times daily with meals. Recheck BMP in 1 week. (8) SIADH (syndrome of inappropriate ADH production): Status: Acute Code(s): E22.2 - Syndrome of inappropriate secretion of antidiuretic hormone (9) Acute metabolic encephalopathy: Status: Resolved Code(s): G93.41 - Metabolic encephalopathy Plan: Secondary to severe hyponatremia with a sodium of 122. Encephalopathy resolved with treatment of hyponatremia. He is at his baseline mentally at [facility] from [facility]. (10) Paranoid schizophrenia: Status: Chronic Code(s): F20.0 - Paranoid schizophrenia Plan: Stable on Olanzapine 2.5 mg at . Olanzapine can cause osteopenia. Would obtain a DEXA to assess bone mineral density in the near future. Continue vitamin D and calcium supplements at [facility]. (11) Psoriasis: Status: Chronic Code(s): L40.9 - Psoriasis, unspecified Plan: Treated with clobetasol with excellent improvement. Was transitioned to a less potent steroid (hydrocortisone) and the rash remained stable. Hydrocortisone will continue at [facility] but, it was made PRN recurrence of rash. The rash was on the face, the abdomen, around the umbilicus and on the R lateral calf. (12) Hyperglycemia: Status: Acute Code(s): R73.9 - Hyperglycemia, unspecified Plan: Hemoglobin A1c is 5.6. Mild hyperglycemia is more likely than not secondary to stress. (13) Epilepsy: Status: Chronic Code(s): G40.909 - Epilepsy, unspecified, not intractable, without status epilepticus Qualifiers: Epilepsy type: unspecified Intractability: not intractable Status epilepticus: without status epilepticus Qualified Code(s): G40.909 - Epilepsy, unspecified, not intractable, without status epilepticus Plan: No seizures for many years. Continue Tegretol. Level was checked twice on rehab and it is therapeutic. Plan Transfer to SNF today. Medications at Discharge Home Medications carbamazepine 200 mg tablet 200 mg PO TID Seizures #30 tabs 03/21/17 multivitamin 1 tab PO DAILY supplement 03/17/23 olanzapine 2.5 mg tablet 2.5 mg PO DAILY Schizophrenia 10/13/24 acetaminophen 325 mg tablet (Tylenol) 650 mg PO Q4H PRN pain 10/19/24 bisacodyl 10 mg rectal suppository 10 mg NH X1 PRN Constipation #0 ea 11/09/24 calcium carbonate 500 mg (2.5 x 200 mg calcium (500 mg)) PO BIDCM #0 tabs 11/09/24 cholecalciferol (vitamin D3) 25 mcg (1,000 unit) tablet 25 mcg PO DAILY #0 tabs 11/09/24 enoxaparin 40 mg/0.4 mL subcutaneous syringe 40 mg (0.4 mL) subcut DAILY@0600 #1 mL 11/09/24 hydrocortisone 2.5 % topical cream 1 applic topical BID PRN Erythema rash with scales #0 grams 11/09/24 magnesium hydroxide 400 mg/5 mL oral suspension 30 ml PO X1 PRN Constipation #0 mL 11/09/24 oxycodone 5 mg tablet 5 mg PO Q4H PRN pain (scale score 4-10) 7 days #14 tabs 11/09/24 sennosides 8.6 mg-docusate sodium 50 mg tablet (Stimulant Laxative Plus) 2 tab PO BID #1 TAB 11/09/24 sodium chloride 1,000 mg soluble tablet 1,000 mg PO TID #0 tabs 11/09/24 tamsulosin 0.4 mg capsule 0.4 mg PO DAILY@1730 #1 cap 11/09/24 Hospital Course Operations - (ORIF of R hip fx and R iliac wing fracture on 10/14/[address] Bairon Carlson at [facility]) Procedures None Summary of Care Provided Minutes Spent on Discharge: 35 Hospital Course: GIOVANNA MONTOYA, is a 74 YO M with a PMH of paranoid schizophrenia, hyperglycemia (not diagnosed with DM), seizure disorder (no seizure for 30 years) and psoriasis who presented to the ED at [facility] on 10/13/2024 after having a fall at work. He works at the [employer]. He was complaining of right hip pain that was worse with weightbearing. He was not able to ambulate. Plain x-rays showed the right acetabulum to be deformed at the central and medial aspects. CT scan of the pelvis and right hip showed a comminuted fracture of the inferior aspect of the right iliac bone with extension into the right acetabulum and anterior displacement of the distal fracture fragments. It involve the posterior acetabulum more prominently than the anterior. The ER doctor discussed the case with Dr. Burden from orthopedics and he recommended transfer to a tertiary care facility. The case was discussed with Dr. Limon at [facility] and he accepted the patient for transfer. He underwent surgery on 10/14/2024. Postoperatively his hemoglobin dropped to 6.7 and he received a blood transfusion. The hemoglobin has been stable for the past 2 days. He was transferred to the acute inpatient rehab unit at [facility] on 10/19/2024 for 3 hours of therapy daily to restore function/independence at or near his level prior to the recent fall/fracture. Reji was found to have urine retention at admission to rehab. UA was negative for infection. A Mcginnis catheter was inserted and he was started on Flomax. After 5 or 6 doses of Flomax a voiding trial was done. He still has some residual after urination but, all post void residuals have been less than 200. While on rehab his sodium dropped to 122. His thought processing was slow and he had difficulty following commands. Urine sodium, urine osmolality and serum osmolality were consistent with SIADH. He was treated with Lasix, salt tabs and fluid restriction and prior to discharge the sodium is now 137. Lasix was discontinued a few days prior to discharge and the sodium remained normal. Fluid restriction was increased from 1000 cc daily to 1400 cc daily prior to discharge. HE will drink fluids all day long IF they are always in front of him. Salt tabs are being continued at [facility] and a BMP has been ordered 1 week post DC. He had acute blood loss anemia at presentation to rehab but, The HGB has been improving. Hemoglobin was 8.4 and admission to rehab and at discharge it is up to 10.5. Hemoccult stool was negative. Tegretol can cause SIADH. His Tegretol level x 2 has been therapeutic. He has had no seizures since admission to rehab. I suspect the SIADH is due to him drinking all the ice water that is put in front of him.......and not due to Tegretol. Reji has been unable to maintain TTWB on the RLE. He has been hopping on the left leg with a walker. Per orthopedics if he can not maintain TTWB on the RLE than he should be NWB until seen by ortho. They would like to see him 6 weeks post-op and get XRAYS. There will be no change in the weight bearing status prior to him following up with Dr. Bairon Carlson in the office at the end of October. The surgery was on 10/14/24. Reji has always been pleasant and cooperative. He is independent with eating and supervision/set up for grooming and upper body dressing. He requires minimal assistance with bathing and minimal assistance with lower body dressing. He is contact-guard assist for toilet transfer but is still requiring maximum assistance with toileting/posterior hygiene. Still not able to maintain toe-touch weightbearing. He is consistently contact-guard assist with ambulation and he is walked up to 10 feet, mostly hopping on his left lower extremity. We were unable to advance therapy any further due to the inability to maintain the TTWB. He was discharged to [facility] on 11/11/2024 for intermediate care until his wt bearing status can be advanced. He had a comminuted fracture of the R iliac wing and the R acetabulum. Olanzapine is associated with bone loss. I recommend he have an OP DEXA/bone mineral density in the near future. He will continue Calcium and Vitamin D supplementation at [facility] from [facility]. Physical Exam Const alert and no apparent distress Constitutional Narrative: pleasant and cooperative General Appearance: cooperative, comfortable and well kempt HEENT head/scalp atraumatic HEENT Narrative: The rash involving the R nasolabial fold has completely resolved. MM are a little dry. Eyes PERRL, EOMs intact bilaterally, conjunctivae normal and no scleral icterus Eyes Narrative: No discharge from the eyes General Eye: normal appearance of both eyes and normal light reflex Neck supple and No nodes Neck Narrative: Carotids have brisk upstroke and good pulse volume bilaterally. Chest Chest: symmetrical chest wall rise Resp normal respiratory effort and clear to auscultation bilaterally Resp Narrative: No conversational dyspnea Effort and Inspection: able to speak in complete sentences; Negative for tachypneic Cardio regular rate, regular rhythm, S1 normal heart sound, S2 normal heart sound, no murmurs, no rub and no gallops Cardio Narrative: No ectopy GI normal to inspection, nondistended, normoactive bowel sounds, soft to palpation and non-tender GI Narrative: Having regular bowel movements. No guarding with palpation. The rash on the right upper quadrant of the abdomen has completely resolved with topical steroids. The rash around the umbilicus has also resolved but there is some pinkish-red discoloration around the umbilicus that remains. No discharge. no CVA tenderness Narrative: He had a Mcginnis catheter while on rehab secondary to urine retention. He was started on Flomax and the postvoid residuals after discontinuation of the Mcginnis catheter have all been less than 200. Extremity Extremity Narrative: Persistent pitting edema of the R ankle. No edema in the LLE. NO calf pain. No erythema of the RLE. No pain with compression of the calf. No pain with dorsiflexion on the R foot. General Extremity: edema Skin Skin Narrative: All rosalee have been removed and all incisions are intact with no DC, no erythema and no significant carissa-incisional edema. General Skin Exam: no breakdown Wound Narrative: The incision is intact with no dehiscence, no discharge and no carissa-incisional erythema. There is no tenderness to palpation around the incision. Neuro CN's II-XII intact bilaterally and moves all extremities Neuro Narrative: thought processing is much better with the resolution of hyponatremia. Psych cooperative and affect normal Appearance: appropriate and well kempt Attitude: calm and engaged Activity / Motor Behavior: appropriate eye contact Weight / BMI Weight Weight: 186 lb 8.177 oz Body Mass Index (BMI) 28.3 ABG / Lab / Microbiology Data 11/05/24 05:33 11/10/24 07:42 Laboratory: Laboratory Results - last 24 hr 11/10/24 07:42: Sodium 137, Potassium 4.8, Chloride 100, Carbon Dioxide 25.4, Anion Gap 12, BUN 18, Creatinine 0.83, Estim Creat Clear Calc 80.19, Est GFR (MDRD) Non-Af 91, BUN/Creatinine Ratio 21.5 H, Glucose 102 H, Calcium 9.3 Microbiology: Microbiology 10/21/24 09:00 Stool Stool Occult Blood (ANAID) - Final D/C Instructions DC O2, CPAP, BIPAP Needs Home O2 Discharge instructions: No Please Follow Up With: Dr. Bairon Carlson Meaningful Use Info Meaningful Use Meaningful Use Diagnoses (Choose all that apply): None applicable Ischemic Stroke Statin Dosing Therapy Reference: STATIN DOSE THERAPY REFERENCE: * Patients > 75 years receive moderate or high dose statin therapy. * Patients 75 years or YOUNGER should receive HIGH intensity statin dose unless contraindicated. You will be required to document reason for non-treatment if statin daily dose does not meet guidelines. HIGH DOSE STATIN THERAPY DAILY Atorvastatin > than or = to 40 mg Rosuvastatin > than or = to 20 mg Amlodipine + Atorvastatin > than or = to 2.5/40 mg Ezetimibe + Simvastatin 10/80 mg Simvastatin 80mg Discharge Plan Admission Admit Date/Time: 10/19/24 14:22 Primary Reason for Your Visit: Debility due to R hip fx/ORIF Attending Provider: Marlyn Gutierrez Primary Care Provider: Bebeto Holcomb Instructions Additional Instructions / Restrictions: 1. Post void residuals on Flomax are all less than 200. 2. Has been taking Oxycodone 1-2 times a day, usually in the AM and at bedtime. 3. He is on 1,000 cc/day fluid restriction for hyponatremia due to SIADH. 4. If he is unable to maintain TTWB on the R leg then he should be NWB on the R leg. He usually hops on the left leg using a walker. Discharge Orders/Prescriptions Prescriptions: New bisacodyl 10 mg Suppository 10 mg NH X1 PRN (Reason: Constipation) Qty: 0 0RF calcium carbonate 200 mg calcium (500 mg) Tablet,Chewable 500 mg PO BIDCM Qty: 0 0RF hydrocortisone 2.5 % Cream 1 applic topical BID PRN (Reason: Erythema rash with scales) Qty: 0 0RF Protocol: *Topical Application Instructions APPLICATION INSTRUCTIONS: Apply to the rash on on the right side of the abd, the carissa-umbilical rash and the rash on the R lateral calf. Do not apply to the face. Rx Instructions: Apply to rash due to psoriasis enoxaparin 40 mg/0.4 mL Syringe 40 mg subcut DAILY@0600 Qty: 1 0RF Rx Instructions: Continue until he is weight bearing on the RLE cholecalciferol (vitamin D3) 25 mcg (1,000 unit) Tablet 25 mcg PO DAILY Qty: 0 0RF magnesium hydroxide 400 mg/5 mL Suspension 30 ml PO X1 PRN (Reason: Constipation) Qty: 0 0RF oxycodone 5 mg Tablet 5 mg PO Q4H PRN (Reason: pain (scale score 4-10)) 7 Days Qty: 14 0RF sennosides-docusate sodium [Stimulant Laxative Plus] 8.6-50 mg Tablet 2 tab PO BID Qty: 1 0RF tamsulosin 0.4 mg Capsule 0.4 mg PO DAILY@1730 Qty: 1 0RF sodium chloride 1,000 mg Tablet,Soluble 1,000 mg PO TID Qty: 0 0RF Continued multivitamin Tablet 1 tab PO DAILY carbamazepine 200 MG tablet 200 mg PO TID Qty: 30 0RF acetaminophen [Tylenol] 325 mg tablet 650 mg PO Q4H PRN (Reason: pain) olanzapine 2.5 mg tablet 2.5 mg PO DAILY Discontinued calcium-vitamin D3-vitamin K 500-100-40 mg-unit-mcg tablet,chewable 1 tab PO DAILY oxycodone 5 mg capsule 5 mg PO Q4H PRN (Reason: pain (scale score 4-10)) Referrals / Follow Up: Bairon Carlson MD [Non-Staff] - 11/23/24 9:20 am (will have X-rays 1st) Bebeto Holcomb MD [Primary Care Provider] - Disposition Disposition (needs filled in before D/C Order can be placed): NonSkilled NH/Intermed Care Charges/Coding Visit Charges Inpatient E&M: 36540 Disch Hosp >30min
[2024-11-11] MEDS: Calcium Carbonate 500 MG Tablet PO (08:18)
[2024-11-11] MEDS: Cholecalciferol (VIT D3) 25 MCG TABLET (1,000 UNITS) PO (08:18)
--- NOTE | 2024-11-11 13:47 | NURSING ---
discharged to [facility] via [facility]. Report called to Tania
[2024-11-11 13:49] VITALS: BP 133/62; PULSE 79; RESP 17; TEMP 36.6; O2SAT 94
== END 2024-11-11 13:50 | disposition intermediate care facility (04) | DRG 560 ==
PROVIDERS: Admitting Provider Internal Medicine; PCP Family Medicine; Referring Provider Internal Medicine; Visit Provider Internal Medicine
DX: S32.401D Unspecified fracture of right acetabulum, subsequent encounter for fracture with routine healing (principal); E22.2 Syndrome of inappropriate secretion of antidiuretic hormone; F20.0 Paranoid schizophrenia; D62 Acute posthemorrhagic anemia; L03.311 Cellulitis of abdominal wall; L40.9 Psoriasis, unspecified; W19.XXXD Unspecified fall, subsequent encounter; L21.9 Seborrheic dermatitis, unspecified; M21.371 Foot drop, right foot; S32.301D Unspecified fracture of right ilium, subsequent encounter for fracture with routine healing; R73.9 Hyperglycemia, unspecified; Z79.899 Other long term (current) drug therapy
CPT/HCPCS: 36415; 72170; 80048; 80053; 80156; 81001; 82274; 82306; 83036; 83735; 83930; 83935; 84100; 84295; 84300; 85014; 85018; 85025; 97110; 97112; 97116; 97162; 97166; 97530; 97535; 97542; 97802; 97803

== ENCOUNTER → 2025-03-07 | Outpatient (CLI) | payer MEDICARE, SELFPAY ==
[2025-03-07 12:22] LABS: Hematocrit 35.9 % (40-54); Hemoglobin 12.2 g/dL (13.0-16.5); Immature Granulocytes Count 0.040 X10^3/uL (0.0-0.0); Mean Corp Hgb Conc 34.0 g/dL (32-36); Mean Corpuscular Volume 88.6 fL (80-94); Mean Platelet Vol. 8.4 fl (6.2-12.0); NRBC Flagged by Analyzer 0 % (0-5); Platelet Count 265 K/mm3 (150-450); RBC Distribution Width CV 13.7 % (11.6-14.6); RBC Distribution Width SD 44.2 fl (35.1-43.9); Red Blood Count 4.05 M/mm3 (4.6-6.2); White Blood Count 6.1 K/mm3 (4.4-11.0)
[2025-03-07 13:01] LABS: Anion Gap 10 (5-15); BUN 8 mg/dL (4-19); BUN/Creat Ratio 10.9 RATIO (10-20); Calcium,Total 9.3 mg/dL (7.6-11.0); Carbon Dioxide 24.9 mmol/L (21.0-32.0); Chloride 92 mmol/L (98-108); Glucose 95 mg/dL (70-99); Potassium 4.6 mmol/L (3.3-5.1)
== END | disposition home or self-care (01) ==
LOC: MFPLAB 09:45
PROVIDERS: PCP Family Medicine; Referring Provider Family Medicine; Visit Provider Family Medicine
DX: D64.9 Anemia, unspecified (principal); E87.1 Hypo-osmolality and hyponatremia
CPT/HCPCS: 36415; 80048; 85025

== ENCOUNTER → 2025-03-22 | Outpatient (CLI) | payer MEDICARE, SELFPAY ==
[2025-03-22 13:18] LABS: Anion Gap 10 (5-15); BUN 7 mg/dL (4-19); BUN/Creat Ratio 9.5 RATIO (10-20); Calcium,Total 9.4 mg/dL (7.6-11.0); Carbon Dioxide 25.1 mmol/L (21.0-32.0); Chloride 91 mmol/L (98-108); Glucose 88 mg/dL (70-99); Potassium 4.4 mmol/L (3.3-5.1)
== END | disposition home or self-care (01) ==
LOC: MTLAB 09:49
PROVIDERS: PCP Family Medicine; Visit Provider Family Medicine
DX: D64.9 Anemia, unspecified (principal)
CPT/HCPCS: 36415; 80048

== ENCOUNTER → 2025-08-10 | Outpatient (CLI) | payer MEDICARE, SELFPAY ==
[2025-08-10 10:42] LABS: Anion Gap 10 (5-15); BUN 12 mg/dL (4-19); BUN/Creat Ratio 15.3 RATIO (10-20); Calcium,Total 9.0 mg/dL (7.6-11.0); Carbon Dioxide 26.8 mmol/L (21.0-32.0); Chloride 97 mmol/L (98-108); Glucose 92 mg/dL (70-99); Potassium 4.2 mmol/L (3.3-5.1)
[2025-08-10 17:55] LABS: Xtra Tube Kwok EXTRA TUBE
== END | disposition home or self-care (01) ==
LOC: POLAB3 09:52
PROVIDERS: PCP Family Medicine; Visit Provider Internal Medicine Nephrology
DX: E87.1 Hypo-osmolality and hyponatremia (principal)
CPT/HCPCS: 36415; 80048

== ENCOUNTER 2025-08-22 09:30 | Outpatient (RCR) | payer OTHER, MEDICARE, SELFPAY ==
--- NOTE | 2025-05-24 09:57 | HP.PTEVAL_ITS ---
Patient's Visit Information Visit Information Visit Information: GIOVANNA MONTOYA is a 75 year old M referred to Physical Therapy by [place] Pinon with a diagnosis of closed displace R hip fx R acetabulum/R foot drop/balance. Date of Evaluation: 05/24/25 Physical Therapist: DELORIS Easley Visit Plan Frequency: 2x /Week Duration: 6 Weeks Plan: Per order: aggressive ROM all joints, gait, balance, and strength Pt needs a gait belt at all times 2X/ week for 6 weeks for total of 12 visits for LE ROM (gastroc/Hamstring), strength R LE, Gait training with a cane, balance, functional transfers, with HEP HEP: towel gastroc stretch Subjective Subjective: Pt had a nerve conduction test and he will not have to have surgery. He has a R AFO brace on. The Dr said it might take 1-2 years to come back. He fell at work outside and he crushed his pelvis and had R hip surgery and they think that he crushed a nerve in his foot when he fell. He has pins in his hip. He reports that his surgery was 10-14-24. He was in a wheelchair for 3 months. He started with the walker on January 11 and been using the walker since then. He will walk a little bit in his house without the walker. He does not have his balance back. He has no issues getting in and out of the car. He has steps at home but he lets his do the laundry. His bed and bathroom are all on the first floor. He wants to be able to go up 10-15 steps without the cane. Objective Objective: Gait: Walks with flexed trunk with the rolling walker with decreased R heel to toe gait pattern with R AFO with decreased hip extension and increase hip and knee flexion on the R with gait. Walked with a WBQC with CGA to min A. Decreased R LE step length and decreased heel to toe gait pattern with AFO on. Did have a few LOB but caught self most times and once with the elbow on the door frame. LE MMT: R hip flex 6.7 and L 10.8 R knee ext 15.2 and L 19 R knee flex 6.5 and L 5.2 R supine hip abd 17.5 and L 18.1 Pt is able to SLR B but weaker and less controlled on the R. Sit to stand: pt is able to get up on first attempt with R hand on the chair rail. In supine PT LIKES to ER R hip as his position of choice Standing balance with feet together X 4 seconds and then he had to step BW with his L foot to correct his balance. Very tight gastroc on the R AROM -31 Very little AROM DF/PF of the R foot. Balance/Special Test Scores Lower Extremity Functional Score: 37 Goals Goal 1:: I HEP Goal Time Frame: 6-8 Weeks Goal 2:: Be able to get out of the chair with no UE support X 5 times in a row Goal Time Frame: 6-8 Weeks Goal 3:: Improve R ankle DF PROM (at the time of the eval: Very tight gastroc on the R AROM -31 Very little AROM DF/PF of the R foot). Goal Time Frame: 6-8 Weeks Goal 4:: Be able to walk with least restrictive device (WBQC VS cane) 150 feet with CGA with no LOB Goal Time Frame: 6-8 Weeks Goal 5:: Be able to stand with feet together (4 seconds on eval) Goal Time Frame: 6-8 Weeks Goal 6:: Increase LE strength (at the time of the eval: LE MMT: R hip flex 6.7 and L 10.8 R knee ext 15.2 and L 19 R knee flex 6.5 and L 5.2 R supine hip abd 17.5 and L 18.1 Pt is able to SLR B but weaker and less controlled on the R). Goal Time Frame: 6-8 Weeks Rehabilitation Potential Rehabilitation Potential: Good Anticipated Interventions Patient/Client Instruction: Educate patient on: Condition and Plan of Care For the Purpose of:: To decrease pain, To increase ROM, To improve nutrient delivery to tissue, To improve muscle performance and motor function, To improve ability to perform ADL's, To increase tolerance to activity/condition/position, To improve performance and independence with ADL's, To decrease level of supervision to perform tasks, To improve ability of physical actions for home/c ommunity/work/leisure, To improve gait and locomotor functions, To improve health of tissue, To decrease soft tissue restriction, To increase flexibility/ROM, To improve endurance, To improve balance and To improve safety with gait Therapeutic Exercise to Include: Strength training, Endurance training, Balance training, Postural training, Flexibilty training, Gait and locomotor training, Neuromotor development, Passive ROM, Active ROM, Dynamic Lumbar Stabilization and Scapular Strength/Stabilization For the Purpose of:: To decrease pain, To increase ROM, To improve nutrient delivery to tissue, To increase oxygenation perfusion, To improve muscle performance and motor function, To improve ability to perform ADL's, To increase tolerance to activity/condition/position, To improve performance and independence with ADL's, To decrease level of supervision to perform tasks, To improve ability of physical actions for home/community/work/leisure, To improve gait and locomotor functions, To improve health of tissue, To decrease soft tissue restriction, To increase flexibility/ROM, To improve endurance, To improve balance and To improve safety with gait Functional Training to Include: Gait training For the Purpose of:: To improve gait and locomotor functions and To improve safety with gait Manual Therapy Techniques to Include: Mobilization, Passive ROM and Soft tissue mobilization For the Purpose of:: To increase ROM, To improve nutrient delivery to tissue, To improve muscle performance and motor function, To improve ability to perform ADL's, To improve health of tissue, To decrease soft tissue restriction and To increase flexibility/ROM Text: Thank you for the opportunity to evaluate your patient. For Medicare and Medicare HMO plans, please review the plan of care and approve it. It will need to be FAXED BACK to us at [phone] for Medicare purposes. For Medicare only, by signing this I certify the plan of care. Please let me know if there are questions or concerns regarding this plan of care. Physician Signature: Date:
--- NOTE | 2025-07-04 09:58 | HP.PTDCSUM ---
Discharge Summary D/C summary: It has been my pleasure to treat GIOVANNA MONTOYA referred by [place] Pinon, with the diagnosis of closed displace R hip fx R acetabulum/R foot drop/balance for a total of 13 visit(s). Discharge Date: 07/04/25 Please see the following information for a summary of their discharge status. Subjective Subjective: He always uses his walker and uses the AFO for drop foot. He had an EMG test and they said that his nerve is coming back and itll be 1-2 years. Pt feels that his walking and balance has improved. Pt feels that he is much better. Overall Improvement % Improvement: 80 Objective Objective/Function: LE MMT: R hip flex 8.1 and L 11.1 R knee ext 20.2 and L 20.9 R knee flex 6.5 and L 5.2 R supine hip abd 17.5 and L 18.1 Pt is able to SLR B but weaker and less controlled on the R). R AROM: Very little AROM AFO helpos Sit to stand X 5 with no UE support on first attempt Standing with feet together X 30 seconds Goals Goal 1:: I HEP Goal 2:: Be able to get out of the chair with no UE support X 5 times in a row Goal Progress: Goal Met Goal 3:: Improve R ankle DF PROM (at the time of the eval: Very tight gastroc on the R AROM -31 Very little AROM DF/PF of the R foot). Goal 4:: Be able to walk with least restrictive device (WBQC VS cane) 150 feet with CGA with no LOB Goal Progress: Progressing Goal 5:: Be able to stand with feet together (4 seconds on eval) Goal Progress: Goal Met Goal 6:: Increase LE strength (at the time of the eval: LE MMT: R hip flex 6.7 and L 10.8 R knee ext 15.2 and L 19 R knee flex 6.5 and L 5.2 R supine hip abd 17.5 and L 18.1 Pt is able to SLR B but weaker and less controlled on the R). Goal Progress: Goal Met Plan Plan: DC PT as C9 is up D/C Information Discharge Comments: DC PT d/c sentence: If there are questions or concerns regarding this patient's physical therapy, please feel free to call me at [phone]. Thank you for the referral of this patient. Sincerely, Joann Patel, MPT Balance/Gait/Functional tests Balance/Special Test Scores Lower Extremity Functional Score: 40 Improvement % Improvement: 80
--- NOTE | 2025-08-22 10:24 | HP.PTDCSUM ---
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 Discharge Date: 08/22/25 Please see the following information for a summary of their discharge status. Subjective Subjective: Pt feels that he has really improved with his posture, leg strength. He takes his rollator with him where ever he goes. He always wears the brace. He has not fallen at all. Pt wants to get better. Overall Improvement % Improvement: 80 Objective Objective/Function: R ankle DF PROM (at the time of the eval: Very little AROM of the ankle 10 degrees inversion and 2 degrees eversion. Tight R gastroc and pt says he is stretching with a towel still. Pt is improving with his gait and LE strength. Pt was told it could take up to 2 years for the nerve to his foot to grow back. He needs to continue to do his HEP to keep ROM. Pt needed verbal cues and pictures on how to do the gastroc towel stretch. Pt is ambulating with more upright trunk but still does lean on the walker and walks with arms outstretched in front. Goals Goal 1:: I HEP Goal 2:: Be able to get out of the chair with no UE support X 10 times in a row with good balance and no UE support Goal Progress: Goal Met Goal 3:: Improve R ankle DF PROM (at the time of the eval: Very tight gastroc on the R AROM -31 Very little AROM DF/PF of the R foot). Goal 4:: Be able to walk with least restrictive device (WBQC VS cane) 150 feet with CGA with no LOB Goal Progress: Progressing Goal 5:: Be able to stand with feet together (4 seconds on eval) Goal Progress: Goal Met Goal 6:: Increase LE strength (at the time of the eval: LE MMT: R hip flex 6.7 and L 10.8 R knee ext 15.2 and L 19 R knee flex 6.5 and L 5.2 R supine hip abd 17.5 and L 18.1 Pt is able to SLR B but weaker and less controlled on the R). Goal Progress: Goal Met Plan Plan: DC PT at this time as his C-9 has . D/C Information Discharge Comments: DC PT to HEP to self stretch gastroc and continue to work on LE strength d/c sentence: If there are questions or concerns regarding this patient's physical therapy, please feel free to call me at [phone]. Thank you for the referral of this patient. Sincerely, Joann Patel, MPT Balance/Gait/Functional tests Balance/Special Test Scores Lower Extremity Functional Score: 41 Improvement % Improvement: 80
== END 2025-08-22 13:45 | disposition home or self-care (01) ==
LOC: PT 09:30
PROVIDERS: PCP Family Medicine; Referring Provider Physician Assistant; Visit Provider Physician Assistant
DX: S32.401D Unspecified fracture of right acetabulum, subsequent encounter for fracture with routine healing (principal); M21.371 Foot drop, right foot
CPT/HCPCS: 97110; 97162; 97530